=== PATIENT | female | born 1940 | race Hispanic/Latino ===

== ENCOUNTER 2018-12-02 14:30 | Emergency (ER) | payer SELFPAY ==
[2018-12-02] MEDS ORDERED: ONDANSETRON 4 MG/2 ML VIAL ONE (15:30)
[2018-12-02] MEDS ORDERED: NA CHLORIDE 0.9% 500 ML ONE (15:30)
[2018-12-02 15:32] LABS: Absolute Lymphocytes (CBC) 2.5 K/uL (0.7-4.9); Hematocrit 42.4 % (36.0-45.0); Lymphocytes % 29.4 % (15.3-44.8); RBC Red Blood Cell Count 4.82 M/uL (3.86-4.86)
[2018-12-02 15:46] LABS: Albumin 3.9 g/dL (3.4-5.0); Bilirubin Direct 0.2 mg/dL (0-0.2); Bilirubin Total 0.3 mg/dL (0.2-1.0); Potassium 3.5 mmol/L (3.5-5.1); Protein, Total 7.7 g/dL (6.4-8.2)
[2018-12-02] MEDS ORDERED: MEPERIDINE HCL 25 MG/0.5 ML ONE (15:51)
[2018-12-02 16:22] LABS: Urine RBC NONE SEEN /HPF (NONE SEEN)
[2018-12-02 16:23] LABS: Urine Bacteria 20-50 /HPF (<20); Urine Culture Reflex Order REFLEXED
[2018-12-02 16:27] LABS: Urine Blood TRACE (NEG); Urine Glucose NEGATIVE (NEG); Urine Protein NEGATIVE (NEG)
--- NOTE | 2018-12-02 17:20 | RAD REPORT ---
EXAM DESCRIPTION: CT - Head Brain Wo Cont - 12/02/2018 5:13 pm CLINICAL HISTORY: Headache COMPARISON: CT head April 2016 TECHNIQUE: Axial 5 mm thick images of the head were obtained without IV contrast. All CT scans are performed using dose optimization technique as appropriate and may include automated exposure control or mA/KV adjustment according to patient size. FINDINGS: No intracranial hemorrhage, mass, edema or shift of mid-line structures. No acute infarcti on changes seen. No abnormal extra-axial fluid collections. Mild atrophy changes similar to compariso n. Ventricles are in proportion. Mastoid air cells and visualized portions of the paranasal sinuses are clear. No acute bony findings. IMPRESSION: Negative non-contrast CT head examination for acute finding. No significant change from comparison.
--- NOTE | 2018-12-02 17:30 | RAD REPORT ---
EXAM DESCRIPTION: CT - Abdomen Pelvis W Contrast - 12/02/2018 5:18 pm CLINICAL HISTORY: ABD PAINleft upper quadrant pain COMPARISON: CT April 2016 TECHNIQUE: Biphasic, helical CT imaging of the abdomen and pelvis was performed following 100 ml non -ionic IV contrast. Oral contrast was given. All CT scans are performed using dose optimization technique as appropriate and may include automated exposure control or mA/KV adjustment according to patient size. FINDINGS: No suspicious findings in the lung bases. The liver, spleen, and pancreas show no suspicious findings. Gallbladder is absent. No biliary tree d ilatation. Symmetric renal function is seen with no hydronephrosis or suspicious renal mass. No pyelonephritis o r acute parenchymal process. No bladder abnormalities. No adrenal abnormalities. No dilated bowel loops or bowel wall thickening. Diverticulosis present without diverticulitis. No fr ee air, free fluid or inflammatory stranding. No hernia, mass or bulky lymphadenopathy. Uterus is ab sent. Ovaries are absent or atrophic. Disc and bony degenerative changes are present. No acute finding. IMPRESSION: Contrast enhanced CT abdomen and pelvis showing no acute finding. No abnormality to exp marisol left upper quadrant pain pattern.
--- NOTE | 2018-12-02 17:36 | ER ---
Nurse's Notes [facility] Name: Kristy Serrano Age: 78 yrs Sex: Female : 1940 Arrival Date: 12/02/2018 Time: 14:36 Bed 2 Private MD: Diagnosis: Upper abdominal pain, unspecified;Urinary tract infection, site not specified Presentation: 12/02 14:43 Presenting complaint: Patient states: frontal headache and LUQ pain that began 10 days aa5 ago. Pt states "I am taking medicine for the pain but it's not helping and my blood pressure goes up and down". Transition of care: patient was not received from another setting of care. Onset of symptoms was November 2018. Risk Assessment: Do you want to hurt yourself or someone else? Patient reports no desire to harm self or others. Initial Sepsis Screen: Does the patient meet any 2 criteria? No. Patient's initial sepsis screen is negative. Does the patient have a suspected source of infection? No. Patient's initial sepsis screen is negative. Care prior to arrival: None. 14:43 Acuity: MAYKEL 3 aa5 14:43 Method Of Arrival: Wheelchair aa5 Triage Assessment: 14:45 General: Appears in no apparent distress. comfortable, obese, Behavior is cooperative, bp appropriate for age, anxious. Pain: Complains of pain in head and left upper quadrant. EENT: No deficits noted. Neuro: No deficits noted. Cardiovascular: No deficits noted. Respiratory: No deficits noted. GI: Reports upper abdominal pain. : No deficits noted. Derm: No deficits noted. Musculoskeletal: No deficits noted. Historical: - Allergies: 14:44 No Known Allergies; aa5 - PMHx: 14:44 Diabetes - NIDDM; Hypertension; Hyperlipidemia; Thyroid problem; aa5 - PSHx: 14:44 Cholecystectomy; Hysterectomy; Hernia repair; aa5 - Immunization history:: Adult Immunizations unknown. - Social history:: Smoking status: Patient/guardian denies using tobacco. - Ebola Screening: : No symptoms or risks identified at this time. - Family history:: not pertinent. - Hospitalizations: : No recent hospitalization is reported. Screenin:54 Abuse screen: Denies threats or abuse. Denies injuries from another. Nutritional bp screening: No deficits noted. Tuberculosis screening: No symptoms or risk factors identified. Fall Risk None identified. Assessment: 14:45 General: SEE TRIAGE NOTE. bp 14:45 GI: Bowel sounds present X 4 quads. Abd is soft X 4 quads. bp 17:00 Reassessment: ALL CURRENT ORDERS COMPLETED, DISPO PENDING. bp 17:40 Reassessment: PT D/C HOME AMBULATORY WITH FAMILY, DX WITH UTI. bp Vital Signs: 14:44 BP 146 / 67; Pulse 87; Resp 16 S; Temp 98.1(TE); Pulse Ox 97% on R/A; Pain 10/10; aa5 15:52 BP 144 / 68; Pulse 69; Resp 16; Pulse Ox 97% ; bp 16:45 BP 117 / 58; Pulse 66; Resp 17; Temp 97.8(O); Pulse Ox 97% on R/A; mh5 17:39 BP 142 / 74; Pulse 73; Resp 17; Temp 98; Pulse Ox 98% ; bp ED Course: 14:36 Patient arrived in ED. aa5 14:43 Triage completed. aa5 14:44 Arm band placed on. aa5 14:46 Nitin Hoover, RN is Primary Nurse. bp 14:48 Joao Julian MD is Attending Physician. rn 14:54 Patient has correct armband on for positive identification. Bed in low position. Call bp light in reach. Side rails up X2. Adult w/ patient. 15:23 Warm blanket given. Pulse ox on. NIBP on. mh5 15:24 Initial lab(s) drawn, by tx, sent to lab. Inserted saline lock: 22 gauge in right 5 antecubital area, using aseptic technique. Blood collected. 15:25 Basic Metabolic Panel Sent. mh5 15:25 CBC with Diff Sent. mh5 15:25 Creatinine for Radiology Sent. mh5 15:25 Hepatic Function Sent. mh5 15:25 Lipase Sent. mh5 17:14 CT Head Brain wo Cont In Process Unspecified. EDMS 17:18 CT completed. Patient tolerated procedure well. Patient moved back from CT. mw3 17:19 CT Abd/Pelvis - PO and IV Contrast In Process Unspecified. EDMS 17:43 No provider procedures requiring assistance completed. IV discontinued, intact, bp bleeding controlled, No redness/swelling at site. Pressure dressing applied. Administered Medications: 15:25 Drug: NS 0.9% 500 ml Route: IV; Rate: bolus; Site: right antecubital; bp 17:42 Follow up: IV Status: Completed infusion; IV Intake: 500ml bp 15:25 Drug: Zofran 4 mg Route: IVP; Site: right antecubital; bp 17:41 Follow up: Response: Nausea is decreased bp 15:52 Drug: Demerol 25 mg Route: IVP; Site: right antecubital; bp 17:41 Follow up: Response: Pain is decreased bp 17:43 Drug: Macrobid 100 mg Route: PO; bp 17:43 Follow up: Response: Medication administered at discharge. bp Intake: 17:42 IV: 500ml; Total: 500ml. bp Outcome: 17:35 Discharge ordered by MD. rn 17:40 Discharged to home ambulatory, with family. bp 17:40 Condition: stable 17:40 Discharge instructions given to patient, family, Instructed on discharge instructions, follow up and referral plans. medication usage, Demonstrated understanding of instructions, follow-up care, medications, Prescriptions given X 1. 17:54 Patient left the ED. bp Signatures: Dispatcher [employer] EDMS Joao Julian MD MD rn Calderon, Audri RN RN aa5 Ally Holley5 Nitin Hoover RN RN Marisol Miranda mw3
--- NOTE | 2018-12-02 17:37 | EDPHYS ---
[facility] Name: Kristy Serrano Age: 78 yrs Sex: Female : 1940 Arrival Date: 12/02/2018 Time: 14:36 Bed 2 Private MD: ED Physician Joao Julian HPI: 12/02 15:45 This 78 yrs old Female presents to ER via Wheelchair with complaints of rn Abdominal Pain, Headache. 15:45 The patient presents with abdominal pain in the left upper quadrant. Onset: The rn symptoms/episode began/occurred 10 day(s) ago. The symptoms do not radiate. Associated signs and symptoms: Pertinent positives: nausea and vomiting, constipation, headache, Pertinent negatives: blood in stools, fever, shortness of breath. Modifying factors: The symptoms are alleviated by nothing, the symptoms are aggravated by touching the area. Severity of pain: At its worst the pain was moderate in the emergency department the pain is unchanged. The patient has experienced similar episodes in the past. The patient has not recently seen a physician. 15:49 Reports 10 days of LUQ abd pain, nausea/vomiting, also has left sided headache that she rn attributes to abd pain.. Historical: - Allergies: 14:44 No Known Allergies; aa5 - PMHx: 14:44 Diabetes - NIDDM; Hypertension; Hyperlipidemia; Thyroid problem; aa5 - PSHx: 14:44 Cholecystectomy; Hysterectomy; Hernia repair; aa5 - Immunization history:: Adult Immunizations unknown. - Social history:: Smoking status: Patient/guardian denies using tobacco. - Ebola Screening: : No symptoms or risks identified at this time. - Family history:: not pertinent. - Hospitalizations: : No recent hospitalization is reported. ROS: 15:49 Constitutional: Negative for fever, chills, and weight loss, Eyes: Negative for injury, rn pain, redness, and discharge, Neck: Negative for injury, pain, and swelling, Cardiovascular: Negative for chest pain, palpitations, and edema, Respiratory: Negative for shortness of breath, cough, wheezing, and pleuritic chest pain, Abdomen/GI: Negative for diarrhea MS/Extremity: Negative for injury and deformity, Skin: Negative for injury, rash, and discoloration, Neuro: Negative for weakness, numbness, tingling, and seizure. Exam: 15:49 Constitutional: This is a well developed, well nourished patient who is awake, alert, rn and in no acute distress. Head/Face: Normocephalic, atraumatic. Eyes: Pupils equal round and reactive to light, extra-ocular motions intact. Lids and lashes normal. Conjunctiva and sclera are non-icteric and not injected. Cornea within normal limits. Periorbital areas with no swelling, redness, or edema. ENT: MMM Cardiovascular: Regular rate and rhythm. No pulse deficits. Respiratory: Lungs have equal breath sounds bilaterally, clear to auscultation. No increased work of breathing, no retractions or nasal flaring. Abdomen/GI: soft, mild left sided upper abd tenderness and terence-umbilical tenderness, no rebound MS/ Extremity: Pulses equal, no cyanosis. Neurovascular intact. Full, normal range of motion. Equal circumference. Neuro: Awake and alert, GCS 15, oriented to person, place, time, and situation. Cranial nerves II-XII grossly intact. Motor strength 5/5 in all extremities. Sensory grossly intact Vital Signs: 14:44 BP 146 / 67; Pulse 87; Resp 16 S; Temp 98.1(TE); Pulse Ox 97% on R/A; Pain 10/10; aa5 15:52 BP 144 / 68; Pulse 69; Resp 16; Pulse Ox 97% ; bp 16:45 BP 117 / 58; Pulse 66; Resp 17; Temp 97.8(O); Pulse Ox 97% on R/A; mh5 17:39 BP 142 / 74; Pulse 73; Resp 17; Temp 98; Pulse Ox 98% ; bp MDM: 14:48 Patient medically screened. rn 17:34 Differential diagnosis: diverticulitis, gastritis, gastroesophageal reflux disease, rn non-specific abd pain, pancreatitis, Peptic Ulcer Disease, Pyelonephritis, Ureterolithiasis, urinary tract infection. Data reviewed: vital signs, nurses notes, lab test result(s), radiologic studies, CT scan, and as a result, I will discharge patient. Counseling: I had a detailed discussion with the patient and/or guardian regarding: the historical points, exam findings, and any diagnostic results supporting the discharge/admit diagnosis, lab results, radiology results, the need for outpatient follow up, to return to the emergency department if symptoms worsen or persist or if there are any questions or concerns that arise at home. Response to treatment: the patient's symptoms have markedly improved after treatment, and as a result, I will discharge patient. Special discussion: Based on the patient's Hx, exam, and Dx evaluation, there is no indication for emergent surgery or inpatient Tx. It is understood by the patient/guardian that if the Sx's persist or worsen they need to return immediately for re-evaluation. I discussed with the patient/guardian in detail that at this point there is no indication for admission to the hospital. It is understood, however, that if the symptoms persist or worsen the patient needs to return immediately for re-evaluation. 12/02 15:01 Order name: Basic Metabolic Panel; Complete Time: 17:07 rn 12/02 15:01 Order name: CBC with Diff; Complete Time: 17: rn 12/02 15:01 Order name: Creatinine for Radiology; Complete Time: 17: rn 12/02 15:01 Order name: Hepatic Function; Complete Time: 17: rn 12/02 15:01 Order name: Lipase; Complete Time: 17: rn 12/02 15:01 Order name: Urine Microscopic Only; Complete Time: 17: rn 12/02 15:01 Order name: CT Abd/Pelvis - PO and IV Contrast; Complete Time: 17:32 rn 12/02 15:01 Order name: CT Head Brain wo Cont; Complete Time: 17:32 rn 12/02 16:01 Order name: Urine Dipstick--Ancillary (enter results); Complete Time: 17:07 bd 12/02 16:24 Order name: Urine Culture EDIA 12/02 15:01 Order name: IV Saline Lock; Complete Time: 15:25 rn 12/02 15:01 Order name: Labs collected and sent; Complete Time: 15:26 rn 12/02 15:01 Order name: Urine Dipstick-Ancillary (obtain specimen); Complete Time: 15:55 rn Administered Medications: 15:25 Drug: NS 0.9% 500 ml Route: IV; Rate: bolus; Site: right antecubital; bp 17:42 Follow up: IV Status: Completed infusion; IV Intake: 500ml bp 15:25 Drug: Zofran 4 mg Route: IVP; Site: right antecubital; bp 17:41 Follow up: Response: Nausea is decreased bp 15:52 Drug: Demerol 25 mg Route: IVP; Site: right antecubital; bp 17:41 Follow up: Response: Pain is decreased bp 17:43 Drug: Macrobid 100 mg Route: PO; bp 17:43 Follow up: Response: Medication administered at discharge. bp Disposition: 12/02/18 17:35 Discharged to Home. Impression: Upper abdominal pain, unspecified, Urinary tract infection, site not specified. - Condition is Stable. - Discharge Instructions: Abdominal Pain, Adult, Urinary Tract Infection, Adult. - Prescriptions for Macrobid 100 mg Oral Capsule - take 1 capsule by ORAL route every 12 hours for 7 days; 14 capsule. - Medication Reconciliation Form, Thank You Letter, Antibiotic Education, Prescription Opioid Use form. - Follow up: Private Physician; When: As needed; Reason: Recheck today's complaints, Re-evaluation by your physician. - Problem is new. - Symptoms have improved. Signatures: Dispatcher [employer] EDMS Joao Julian MD MD rn Calderon, Audri RN RN aa5 Nitin Hoover RN RN bp Corrections: (The following items were deleted from the chart) 17:54 17:35 12/02/2018 17:35 Discharged to Home. Impression: Upper abdominal pain, bp unspecified; Urinary tract infection, site not specified. Condition is Stable. Forms are Medication Reconciliation Form, Thank You Letter, Antibiotic Education, Prescription Opioid Use. Follow up: Private Physician; When: As needed; Reason: Recheck today's complaints, Re-evaluation by your physician. Problem is new. Symptoms have improved. rn
[2018-12-02] MEDS ORDERED: NITROFURAN MACRO 100 MG CAP PO ONE (17:46)
== END 2018-12-02 17:54 | disposition home or self-care (01) ==
LOC: ER 14:30
DX: N39.0 Urinary tract infection, site not specified (principal); I10 Essential (primary) hypertension
CPT/HCPCS: 36415; 70450; 74177; 80048; 80076; 81003; 81015; 83690; 85025; 87086; 87088; 96361; 96374; 96375; 99284; J2175; J2405; Q9967

== ENCOUNTER 2019-09-01 11:22 | Emergency (ER) | payer SELFPAY ==
[2019-09-01 13:13] LABS: Absolute Lymphocytes (CBC) 1.6 K/uL (0.7-4.9); Basophils % 0.5 % (0-1.3); Hematocrit 41.1 % (36.0-45.0); Lymphocytes % 25.7 % (15.3-44.8); MPV 7.7 fL (7.6-11.3); RBC Red Blood Cell Count 4.71 M/uL (3.86-4.86)
[2019-09-01 13:19] LABS: Urine Blood TRACE (NEG); Urine Glucose NEGATIVE (NEG); Urine Protein NEGATIVE (NEG)
[2019-09-01] MEDS ORDERED: ONDANSETRON 4 MG/2 ML VIAL ONE (13:22)
[2019-09-01] MEDS ORDERED: MORPHINE 4 MG/ML SYR ONE (13:22)
--- NOTE | 2019-09-01 13:27 | RAD REPORT ---
EXAM DESCRIPTION: RAD - Chest Single View - 09/01/2019 1:01 pm CLINICAL HISTORY: Dizziness COMPARISON: Portable November 2013 TECHNIQUE: AP portable chest image was obtained 09/01/2019 1:01 pm . FINDINGS: No focal mass or consolidation portable technique and prominent overlying soft tissues cre ate hazy density over the lower lung leon. A true lung base acute process is not suspected. Heart a nd vasculature are normal. No measurable pleural effusion and no pneumothorax. No acute bony abnormal ity seen. No acute aortic findings suspected. IMPRESSION: No acute cardiopulmonary process. No significant change from comparison.
[2019-09-01 13:32] LABS: ALT/SGPT 26 U/L (12-78); AST/SGOT 18 U/L (15-37); Albumin 3.8 g/dL (3.4-5.0); Alkaline Phosphatase 94 U/L (45-117); BUN Blood Urea Nitrogen 10 mg/dL (7-18); Bicarbonate 28 mmol/L (21-32); Bilirubin Direct 0.1 mg/dL (0-0.2); Bilirubin Total 0.3 mg/dL (0.2-1.0); Glucose Level 121 mg/dL (74-106); Lipase 199 U/L (73-393); Magnesium 1.9 mg/dL (1.8-2.4); NT PRO-BNP 172 pg/mL (<450); Potassium 3.5 mmol/L (3.5-5.1); Protein, Total 7.8 g/dL (6.4-8.2); Sodium Level 136 mmol/L (136-145); Troponin (Emerg Dept Use Only) < 0.02 ng/mL (0.0-0.045)
[2019-09-01 13:51] LABS: Urine Bacteria 20-50 /HPF (<20); Urine Culture Reflex Order REFLEXED; Urine RBC <5 /HPF (NONE SEEN)
[2019-09-01] MEDS ORDERED: NA CHLORIDE 0.9% 500 ML ONE (13:54)
--- NOTE | 2019-09-01 15:12 | RAD REPORT ---
EXAM DESCRIPTION: CT - Head Brain Wo Cont - 09/01/2019 2:34 pm CLINICAL HISTORY: DIZZINESS, headache COMPARISON: Head Brain Wo Cont dated 12/02/2018 TECHNIQUE: Axial 5 mm thick images of the head were obtained without IV contrast. All CT scans are performed using dose optimization technique as appropriate and may include automated exposure control or mA/KV adjustment according to patient size. FINDINGS: No intracranial hemorrhage, mass, edema or shift of mid-line structures. No acute infarcti on changes seen. No abnormal extra-axial fluid collections. Ventricles are normal. Mild atrophy and m inimal chronic ischemic change similar to comparison. Mastoid air cells and visualized portions of the paranasal sinuses are clear. No acute bony findings. IMPRESSION: Negative noncontrast CT study for acute finding. No significant change from comparison.
--- NOTE | 2019-09-01 15:16 | RAD REPORT ---
EXAM DESCRIPTION: CT - Abdomen Pelvis W Contrast - 09/01/2019 2:41 pm CLINICAL HISTORY: ABD PAIN COMPARISON: Abdomen Pelvis W Contrast dated 12/02/2018; Abdomen Pelvis W Contrast dated 05/23/2016 TECHNIQUE: Biphasic, helical CT imaging of the abdomen and pelvis was performed following 100 ml non -ionic IV contrast. No oral contrast. All CT scans are performed using dose optimization technique as appropriate and may include automated exposure control or mA/KV adjustment according to patient size. FINDINGS: No suspicious findings in the lung bases. The liver, spleen, and pancreas show no suspicious findings. Gallbladder and biliary tree are also wi thout suspicious finding. Symmetric renal function is seen with no hydronephrosis or suspicious renal mass. No pyelonephritis o r acute parenchymal process. No bladder abnormalities. No adrenal abnormalities. No urinary bladder a bnormality. No gastric dilatation or wall thickening. No acute small bowel finding. No appendicitis findings are seen. There is prominent diverticulosis in the tortuous and redundant sigmoid colon. No diverticuliti s or acute colon process seen. No free air, free fluid or inflammatory stranding. No mass or bulky lymphadenopathy. Patient has a 5 centimeter fat only supraumbilical ventral hernia. Neck is 5 cm. Degenerative and scoliotic changes are present in the spine. No acute finding. Degenerative changes a re most pronounced at L2-3. IMPRESSION: Contrast enhanced CT abdomen and pelvis showing no acute or emergent finding. Nonacute findings detailed in the body of the report.
--- NOTE | 2019-09-01 15:25 | ER ---
Nurse's Notes [facility] Name: Kristy Serrano Age: 79 yrs Sex: Female : 1940 Arrival Date: 09/01/2019 Time: 11:42 Bed 16 Private MD: Diagnosis: Urinary tract infection, site not specified;Upper abdominal pain, unspecified Presentation: 08/31 11:45 Chief complaint: Patient states: LUQ pain, dizziness, headache and nausea that began 1 ss week ago. Pt has been seen in ER for similar symptoms and was told she had a UTI. Coronavirus screen: Proceed with normal triage. Patient denies a cough. Patient denies shortness of breath or difficulty breathing. Patient denies measured and/or subjective temperature greater than 100.4F prior to today's visit. Patient denies travel on a cruise ship or to a country the [facility] currently lists as an affected area. Patient denies contact with known and/or suspected case of COVID-19. Ebola Screen: Patient denies exposure to infectious person. Patient denies travel to an Ebola-affected area in the 21 days before illness onset. Initial Sepsis Screen: Does the patient meet any 2 criteria? No. Patient's initial sepsis screen is negative. Does the patient have a suspected source of infection? No. Patient's initial sepsis screen is negative. Risk Assessment: Do you want to hurt yourself or someone else? Patient reports no desire to harm self or others. Onset of symptoms is unknown. 11:45 Method Of Arrival: Wheelchair ss 11:45 Acuity: MAYKEL 3 ss Historical: - Allergies: 11:47 No Known Allergies; ss - PMHx: 11:47 Diabetes - NIDDM; Hyperlipidemia; Hypertension; Thyroid problem; ss - PSHx: 11:47 Cholecystectomy; Hysterectomy; Hernia repair; ss - Immunization history:: Adult Immunizations up to date. - Social history:: Smoking status: Patient denies any tobacco usage or history of. Screenin:00 Abuse screen: Denies threats or abuse. Nutritional screening: No deficits noted. vc Tuberculosis screening: No symptoms or risk factors identified. Fall Risk No fall in past 12 months (0 pts). No secondary diagnosis (0 pts). IV access (20 points). Ambulatory Aid- None/Bed Rest/Nurse Assist (0 pts). Gait- Weak (10 pts.). Mental Status- Oriented to own ability (0 pts). Total Eddy Fall Scale indicates Low Risk Score (25-44 pts). Fall prevention measures have been instituted. Side Rails Up X 2 Placed close to Nursing Station. Assessment: 12:15 General: Appears uncomfortable, Behavior is calm, cooperative, appropriate for age. ll1 Pain: Complains of pain in head and upper abdomen Pain currently is 8 out of 10 on a pain scale. Quality of pain is described as aching, Pain began 2-3 days ago. Is intermittent. Neuro: Level of Consciousness is awake, alert, obeys commands, Oriented to person, place, time, situation, Cuff Slitter are equal bilaterally Moves all extremities. Full function Gait is steady, Speech is normal, Facial symmetry appears normal, Reports headache in entire. Cardiovascular: No deficits noted. Respiratory: No deficits noted. GI: Abdomen is flat, Bowel sounds present X 4 quads. Abd is soft and non tender X 4 quads. Reports upper abdominal pain, nausea. : No deficits noted. 13:15 Reassessment: Patient appears in no apparent distress at this time. No changes from ll1 previously documented assessment. Patient and/or family updated on plan of care and expected duration. Pain level reassessed. Patient is alert, oriented x 3, equal unlabored respirations, skin warm/dry/pink. 15:15 Reassessment: Patient appears in no apparent distress at this time. Patient and/or vc family updated on plan of care and expected duration. Pain level reassessed. Patient is alert, oriented x 3, equal unlabored respirations, skin warm/dry/pink. Reassessment: Patient appears in no apparent distress at this time. Patient and/or family updated on plan of care and expected duration. Pain level reassessed. Patient is alert, oriented x 3, equal unlabored respirations, skin warm/dry/pink. 16:14 Reassessment: Patient appears in no apparent distress at this time. Patient and/or vc family updated on plan of care and expected duration. Pain level reassessed. Patient is alert, oriented x 3, equal unlabored respirations, skin warm/dry/pink. Vital Signs: 11:45 BP 138 / 79; Pulse 93; Resp 16; Temp 97.0(TE); Pulse Ox 99% on R/A; ss 12:40 BP 151 / 69; Pulse 86; Resp 18; Pulse Ox 100% ; ll1 13:00 BP 136 / 65; Pulse 81; Resp 18; Pulse Ox 100% ; ll1 13:30 BP 114 / 95; Pulse 87; Resp 17; Pulse Ox 100% ; Pain 1/10; ll1 13:45 BP 130 / 65; Pulse 80; Resp 18; Pulse Ox 98% ; Pain 1/10; ll1 16:00 BP 135 / 71; Pulse 83; Resp 18; Pulse Ox 100% ; vc ED Course: 11:42 Patient arrived in ED. ss 11:47 Triage completed. ss 11:47 Arm band placed on right wrist. ss 12:00 Nahun Narayan NP is PHCP. pm1 12:00 Joao Julian MD is Attending Physician. pm1 12:10 Inserted saline lock: 20 gauge in right antecubital area, using aseptic technique. ll1 Blood collected. 12:13 Ritika Chacon RN is Primary Nurse. ll1 13:01 XRAY Chest (1 view) In Process Unspecified. EDMS 13:28 EKG done, by ED staff, reviewed by Nahun Narayan NP. dh3 14:34 CT Head Brain wo Cont In Process Unspecified. EDMS 14:41 CT Abd/Pelvis - IV Contrast Only In Process Unspecified. EDMS Administered Medications: 13:32 Drug: Zofran (Ondansetron) 4 mg Route: IVP; Site: right antecubital; ll1 13:52 Follow up: Response: No adverse reaction; Pain is decreased; Nausea is decreased; RASS: ll1 Alert and Calm (0) 13:32 Drug: morphine 4 mg Route: IVP; Site: right antecubital; ll1 13:52 Follow up: Response: No adverse reaction; Pain is decreased; RASS: Alert and Calm (0) ll1 13:49 Drug: NS 0.9% 500 ml Volume: 500 ml; Route: IV; Rate: 1 bolus; Site: right antecubital; ll1 14:15 Drug: Rocephin 1 grams Route: IV; Rate: calculated rate; Site: right antecubital; vc Outcome: 15:24 Discharge ordered by . pm1 16:21 Patient left the ED. vc Signatures: Dispatcher [employer] EDMS Martha Mejia RN RN ss Nahun Narayan MINE ADMINISTRATOR SUPERVISOR MINE ADMINISTRATOR SUPERVISOR pm1 Linda White dh3 Yamilex Peralta, RN RN Ritika Valenzuela, RN RN ll1
--- NOTE | 2019-09-01 15:25 | EDPHYS ---
Physician Documentation [facility] Name: Kristy Serrano Age: 79 yrs Sex: Female : 1940 Arrival Date: 09/01/2019 Time: 11:42 Bed 16 Private MD: ED Physician Joao Julian HPI: 08/31 12:59 This 79 yrs old Female presents to ER via Wheelchair with complaints of pm1 Dizziness, abdominal pain. 12:59 The patient presents with dizziness. Onset: The symptoms/episode began/occurred 1 pm1 week(s) ago. Modifying factors: The symptoms are alleviated by nothing, the symptoms are aggravated by nothing. Associated signs and symptoms: Pertinent positives: abdominal pain, Pertinent negatives: chest pain, headache, nausea, numbness, shortness of breath, tingling, vomiting. The patient has experienced a previous episode, and the symptoms today are exactly the same, last year. Diagnosed with UTI. Historical: - Allergies: 11:47 No Known Allergies; ss - PMHx: 11:47 Diabetes - NIDDM; Hyperlipidemia; Hypertension; Thyroid problem; ss - PSHx: 11:47 Cholecystectomy; Hysterectomy; Hernia repair; ss - Immunization history:: Adult Immunizations up to date. - Social history:: Smoking status: Patient denies any tobacco usage or history of. ROS: 12:59 Constitutional: Negative for fever, chills, and weight loss, Neck: Negative for injury, pm1 pain, and swelling, Cardiovascular: Negative for chest pain, palpitations, and edema, Respiratory: Negative for shortness of breath, cough, wheezing, and pleuritic chest pain. 12:59 Back: Negative for injury and pain, : Negative for injury, bleeding, discharge, and swelling, MS/Extremity: Negative for injury and deformity, Skin: Negative for injury, rash, and discoloration. 12:59 Abdomen/GI: Positive for abdominal pain, of the left upper quadrant, Negative for nausea, vomiting, and diarrhea, constipation. 12:59 Neuro: Positive for dizziness, Negative for headache, numbness, tingling. Exam: 12:59 Constitutional: This is a well developed, well nourished patient who is awake, alert, pm1 and in no acute distress. Head/Face: Normocephalic, atraumatic. Chest/axilla: Normal chest wall appearance and motion. Nontender with no deformity. No lesions are appreciated. 12:59 Back: No spinal tenderness. No costovertebral tenderness. Full range of motion. Skin: Warm, dry with normal turgor. Normal color with no rashes, no lesions, and no evidence of cellulitis. MS/ Extremity: Pulses equal, no cyanosis. Neurovascular intact. Full, normal range of motion. 12:59 Cardiovascular: Exam negative for acute changes, Rate: normal, Rhythm: regular, Pulses: no pulse deficits are appreciated. 12:59 Respiratory: Exam negative for acute changes, respiratory distress, shortness of breath. 12:59 Abdomen/GI: Inspection: abdomen appears normal, Palpation: soft, in all quadrants, mild abdominal tenderness, in the left upper quadrant, mass, is not appreciated, rebound tenderness, is not appreciated. 12:59 Neuro: Exam negative for acute changes, Orientation: is normal, Mentation: is normal, Cranial nerves: CN II- XII are normal as tested, Cerebellar function: normal finger to nose testing, Motor: is normal, moves all fours. Vital Signs: 11:45 BP 138 / 79; Pulse 93; Resp 16; Temp 97.0(TE); Pulse Ox 99% on R/A; ss 12:40 BP 151 / 69; Pulse 86; Resp 18; Pulse Ox 100% ; ll1 13:00 BP 136 / 65; Pulse 81; Resp 18; Pulse Ox 100% ; ll1 13:30 BP 114 / 95; Pulse 87; Resp 17; Pulse Ox 100% ; Pain 1/10; ll1 13:45 BP 130 / 65; Pulse 80; Resp 18; Pulse Ox 98% ; Pain 1/10; ll1 16:00 BP 135 / 71; Pulse 83; Resp 18; Pulse Ox 100% ; vc MDM: 12:20 Patient medically screened. pm1 15:23 Data reviewed: vital signs. Data interpreted: Pulse oximetry: on room air is 98 %. pm1 Interpretation: normal. Counseling: I had a detailed discussion with the patient and/or guardian regarding: the historical points, exam findings, and any diagnostic results supporting the discharge/admit diagnosis, lab results, radiology results, the need for outpatient follow up, to return to the emergency department if symptoms worsen or persist or if there are any questions or concerns that arise at home. 08/31 12:43 Order name: Basic Metabolic Panel; Complete Time: 13:39 pm1 08/31 12:43 Order name: CBC with Diff; Complete Time: 13:39 pm1 08/31 12:43 Order name: LFT's; Complete Time: 13:39 pm1 08/31 12:43 Order name: Magnesium; Complete Time: 13:39 pm1 08/31 12:43 Order name: NT PRO-BNP; Complete Time: 13:39 pm1 08/31 12:43 Order name: PT-INR; Complete Time: 13:39 pm1 08/31 12:43 Order name: Troponin (emerg Dept Use Only); Complete Time: 13:39 pm1 08/31 12:43 Order name: XRAY Chest (1 view); Complete Time: 13:30 pm1 08/31 12:43 Order name: Urine Microscopic Only; Complete Time: 14:04 pm1 08/31 12:44 Order name: Lipase; Complete Time: 13:39 pm1 08/31 12:58 Order name: Urine Dipstick--Ancillary (enter results); Complete Time: 13:23 eb 08/31 13:39 Order name: CT Abd/Pelvis - IV Contrast Only; Complete Time: 15:16 pm1 08/31 13:39 Order name: CT Head Brain wo Cont; Complete Time: 15:16 pm1 08/31 13:53 Order name: Urine Culture EDOK 08/31 12:43 Order name: EKG; Complete Time: 12:44 pm1 08/31 12:43 Order name: Cardiac monitoring; Complete Time: 12:46 pm1 08/31 12:43 Order name: EKG - Nurse/Tech; Complete Time: 13:31 pm1 08/31 12:43 Order name: IV Saline Lock; Complete Time: 12:46 pm1 08/31 12:43 Order name: Labs collected and sent; Complete Time: 12:46 pm1 08/31 12:43 Order name: O2 Per Protocol; Complete Time: 12:47 pm1 08/31 12:43 Order name: O2 Sat Monitoring; Complete Time: 12:47 pm1 08/31 12:43 Order name: Urine Dipstick-Ancillary (obtain specimen); Complete Time: 12:46 pm1 Administered Medications: 13:32 Drug: Zofran (Ondansetron) 4 mg Route: IVP; Site: right antecubital; ll1 13:52 Follow up: Response: No adverse reaction; Pain is decreased; Nausea is decreased; RASS: ll1 Alert and Calm (0) 13:32 Drug: morphine 4 mg Route: IVP; Site: right antecubital; ll1 13:52 Follow up: Response: No adverse reaction; Pain is decreased; RASS: Alert and Calm (0) ll1 13:49 Drug: NS 0.9% 500 ml Volume: 500 ml; Route: IV; Rate: 1 bolus; Site: right antecubital; ll1 14:15 Drug: Rocephin 1 grams Route: IV; Rate: calculated rate; Site: right antecubital; vc Disposition: 16:35 Co-signature as Attending Physician, Joao Julian MD. rn Disposition: 09/01/19 15:24 Discharged to Home. Impression: Urinary tract infection, site not specified, Upper abdominal pain, unspecified. - Condition is Stable. - Discharge Instructions: Abdominal Pain, Adult, Urinary Tract Infection, Adult. - Prescriptions for Macrobid 100 mg Oral Capsule - take 1 capsule by ORAL route every 12 hours for 7 days; 14 capsule. - Medication Reconciliation Form, Thank You Letter, Antibiotic Education, Prescription Opioid Use form. - Follow up: Emergency Department; When: As needed; Reason: Worsening of condition. Follow up: Private Physician; When: 2 - 3 days; Reason: Recheck today's complaints, Continuance of care, Re-evaluation by your physician. - Problem is new. - Symptoms have improved. Signatures: Dispatcher [employer] EDMS Joao Julian MD MD rn Smirch, Shelby, RN RN ss Marinas, Patrick, DUSTY QUILL MACHINE TENDER pm1 Yamilex Peralta RN RN vc Lewis, Lynsay, RN RN ll1 Corrections: (The following items were deleted from the chart) 15:25 15:24 09/01/2019 15:24 Discharged to Home. Impression: Urinary tract infection, site pm1 not specified. Condition is Stable. Forms are Medication Reconciliation Form, Thank You Letter, Antibiotic Education, Prescription Opioid Use. Follow up: Emergency Department; When: As needed; Reason: Worsening of condition. Follow up: Private Physician; When: 2 - 3 days; Reason: Recheck today's complaints, Continuance of care, Re-evaluation by your physician. Problem is new. Symptoms have improved. pm1 16:21 15:25 09/01/2019 15:24 Discharged to Home. Impression: Urinary tract infection, site vc not specified; Upper abdominal pain, unspecified. Condition is Stable. Discharge Instructions: Urinary Tract Infection, Adult, Abdominal Pain, Adult. Forms are Medication Reconciliation Form, Thank You Letter, Antibiotic Education, Prescription Opioid Use. Follow up: Emergency Department; When: As needed; Reason: Worsening of condition. Follow up: Private Physician; When: 2 - 3 days; Reason: Recheck today's complaints, Continuance of care, Re-evaluation by your physician. Problem is new. Symptoms have improved. pm1
[2019-09-01 16:29] VITALS: TEMP 97
[2019-09-01 16:36] VITALS: BP 135/71; O2SAT 100
--- NOTE | 2019-09-03 07:48 | EKG ---
Test Date: 2019-09-01 Test Time: 13:25:16 Vocational Aide: ANGEL MEASUREMENT RESULTS: Intervals: Rate: 79 WI: 178 QRSD: 98 QT: 392 QTc: 449 [place]: P: 41 WI: 178 QRS: -17 T: 28 INTERPRETIVE STATEMENTS: Normal sinus rhythm Normal ECG No previous ECG available for comparison Electronically Signed On 09-03-19 07:44:56 CDT by Randy Garcia
== END 2019-09-01 16:21 | disposition home or self-care (01) ==
LOC: ER 11:22
DX: N39.0 Urinary tract infection, site not specified (principal); R42 Dizziness and giddiness; I10 Essential (primary) hypertension
CPT/HCPCS: 36415; 70450; 71045; 74177; 80048; 80076; 81003; 81015; 83690; 83735; 83880; 84484; 85025; 85610; 87086; 87088; 93005; 96374; 96375; 99284; J2405; J7040; Q9967

== ENCOUNTER 2019-09-02 07:53 | Inpatient (IN) | payer SELFPAY ==
[2019-09-02] MEDS ORDERED: MECLIZINE HCL 12.5 MG TAB ONE (08:27)
[2019-09-02] MEDS ORDERED: NA CHLORIDE 0.9% 500 ML ONE (08:28)
[2019-09-02] MEDS ORDERED: ONDANSETRON 4 MG/2 ML VIAL ONE (08:28)
[2019-09-02 08:40] LABS: Absolute Lymphocytes (CBC) 1.6 K/uL (0.7-4.9); Basophils % 0.4 % (0-1.3); Hematocrit 41.6 % (36.0-45.0); Lymphocytes % 18.2 % (15.3-44.8); MPV 7.7 fL (7.6-11.3); RBC Red Blood Cell Count 4.78 M/uL (3.86-4.86)
[2019-09-02 08:51] LABS: Potassium 3.4 mmol/L (3.5-5.1)
--- NOTE | 2019-09-02 09:28 | RAD REPORT ---
EXAM DESCRIPTION: CT - Head angio - 09/02/2019 9:18 am CLINICAL HISTORY: Dizziness;Headache Headache, drowsiness COMPARISON: Head Brain Wo Cont dated 09/01/2019; Head Brain Wo Cont dated 12/02/2018; Neck Angio dated TECHNIQUE: CT angiography of the head was performed with MIPs. All CT scans are performed using dose optimization technique as appropriate and may include automated exposure control or mA/KV adjustment according to patient size. FINDINGS: No evidence of aneurysm is detected. No flow-limiting stenosis or vascular malformation id entified. Antegrade flow is seen in the vertebral arteries. The vertebral arteries are codominant. The visualized dural venous sinuses are patent. IMPRESSION: No significant flow abnormality is detected.
--- NOTE | 2019-09-02 09:31 | RAD REPORT ---
EXAM DESCRIPTION: CT - Neck Angio - 09/02/2019 9:17 am CLINICAL HISTORY: dizziness, neck pain Headache, drowsiness, neck pain COMPARISON: No comparisons TECHNIQUE: CT angiography of the neck vessels was performed with MIPs. All CT scans are performed using dose optimization technique as appropriate and may include automated exposure control or mA/KV adjustment according to patient size. FINDINGS: A left aortic arch is identified with normal three vessel configuration of the great vesse ls. No significant flow abnormality is seen of the common carotid bilaterally. No significant stenosis is identified involving the cervical segments of both internal carotid arteri es. Left-sided dominant vertebral artery seen. Tonsilliths are present bilaterally. Mild cervical spine spondylosis. IMPRESSION: No significant flow abnormality of the neck vessels is identified.
--- NOTE | 2019-09-02 09:39 | ER ---
Nurse's Notes [facility] Name: Kristy Serrano Age: 79 yrs Sex: Female : 1940 Arrival Date: 09/02/2019 Time: 08:03 Bed 6 Private MD: Diagnosis: Vertigo;Nausea;Weakness Presentation: 09/01 08:15 Chief complaint: Headache and dizziness x 3 days, worse today. Also c/o abdominal pain hb that is chronic. Coronavirus screen: Proceed with normal triage. Ebola Screen: No symptoms or risks identified at this time. Initial Sepsis Screen: Does the patient meet any 2 criteria? No. Patient's initial sepsis screen is negative. Does the patient have a suspected source of infection? No. Patient's initial sepsis screen is negative. Risk Assessment: Do you want to hurt yourself or someone else? Patient reports no desire to harm self or others. Onset of symptoms was September 02, 2019. 08:15 Method Of Arrival: Wheelchair hb 08:15 Acuity: MAYKEL 3 hb Historical: - Allergies: 08:17 No Known Allergies; hb - Home Meds: 08:17 gemfibrozil 600 mg Oral tab 1 tab 2 times per day [Active]; lisinopril 20 mg Oral tab 1 hb tab BID [Active]; metformin 1,000 mg Oral tab 1 tab 1 tab in QAM and 1/2 tab QPM [Active]; - PMHx: 08:17 Diabetes - NIDDM; Hyperlipidemia; Hypertension; Thyroid problem; hb - PSHx: 08:17 Cholecystectomy; Hysterectomy; Hernia repair; hb - Immunization history:: Adult Immunizations up to date. - Social history:: Smoking status: Patient denies any tobacco usage or history of. - Family history:: not pertinent. - Hospitalizations: : No recent hospitalization is reported. Screenin:20 Abuse screen: Denies threats or abuse. Nutritional screening: No deficits noted. em Tuberculosis screening: No symptoms or risk factors identified. Fall Risk None identified. Assessment: 08:20 General: Appears in no apparent distress. uncomfortable, Behavior is calm, cooperative, em appropriate for age, Denies fever. Pain: Complains of pain in abdomen and head Pain currently is 4 out of 10 on a pain scale. Neuro: Level of Consciousness is awake, alert, obeys commands, Oriented to person, place, time, situation, Appropriate for age Reports dizziness, headache. Cardiovascular: Capillary refill < 3 seconds Patient's skin is warm and dry. Chest pain is denied. Respiratory: Airway is patent Respiratory effort is even, unlabored, Respiratory pattern is regular, symmetrical. GI: Abdomen is round non-distended, Abd is soft X 4 quads Abdomen is tender to palpation in right upper quadrant and left upper quadrant Reports nausea, vomiting. Derm: Skin is intact, is fragile, is thin, Skin is pink, warm \T\ dry. Musculoskeletal: Capillary refill < 3 seconds, Range of motion: intact in all extremities. 09:25 Reassessment: Patient appears in no apparent distress at this time. pt states she has em had very little relief from Antivert, Dr. Julian notified, pt also states abd pain is making her nauseous. 09:47 Reassessment: Dr. Powell at bedside discussing POC. em 10:49 Reassessment: Patient appears in no apparent distress at this time. Patient and/or em family updated on plan of care and expected duration. Pain level reassessed. Patient is alert, oriented x 3, equal unlabored respirations, skin warm/dry/pink. Patient states feeling better. Patient states symptoms have improved. Vital Signs: 08:15 BP 162 / 85; Pulse 72; Resp 16; Temp 97.2; Pulse Ox 100% ; Pain 4/10; hb 09:30 BP 154 / 67; Pulse 92; Resp 22; Pulse Ox 97% on R/A; em 10:30 BP 131 / 64; Pulse 72; Resp 18; Pulse Ox 98% on R/A; em ED Course: 08:03 Patient arrived in ED. fj1 08:09 Joao Julian MD is Attending Physician. rn 08:11 Omkar Cho, LUCINA is Primary Nurse. em 08:17 Triage completed. hb 08:17 Arm band placed on. hb 08:20 Patient has correct armband on for positive identification. Call light in reach. Side em rails up X2. Pulse ox on. NIBP on. 08:30 Initial lab(s) drawn, by me, sent to lab. Inserted saline lock: 22 gauge in right em antecubital area, using aseptic technique. Blood collected. 08:49 EKG done, by ED staff, reviewed by Joao Julian MD. em 09:18 CT Neck Angio In Process Unspecified. EDMS 09:18 CT Head Angio In Process Unspecified. EDMS 09:18 CT completed. Patient tolerated procedure well. Patient moved back from CT. bq 09:38 Larry Powell DO is Hospitalizing Provider. rn 11:30 No provider procedures requiring assistance completed. Patient admitted, IV remains in em place. Administered Medications: 08:30 Drug: NS 0.9% 500 ml Route: IV; Rate: bolus; Site: right antecubital; em 10:50 Follow up: IV Status: Completed infusion; IV Intake: 500ml em 08:30 Drug: Zofran (Ondansetron) 4 mg Route: IVP; Site: right antecubital; em 09:40 Follow up: Response: No adverse reaction; No change in condition; Nausea unchanged em 08:53 Drug: Meclizine 50 mg Route: PO; em 09:40 Follow up: Response: No adverse reaction; No change in condition em 09:40 Drug: Phenergan 6.25 mg Route: IVP; Site: right antecubital; em 10:11 Follow up: Response: No adverse reaction em 10:20 Drug: Bentyl 20 mg Route: PO; em 11:30 Follow up: Response: No adverse reaction; Marked relief of symptoms em Intake: 10:50 IV: 500ml; Total: 500ml. em Outcome: 09:39 Decision to Hospitalize by Provider. rn 11:30 Condition: good em 11:30 Instructed on the need for admit, Demonstrated understanding of instructions. 11:30 Admitted to Med/surg accompanied by tech, via wheelchair, room 231, with chart, Report em called to LUCINA Ortega 11:33 Patient left the ED. em Signatures: Dispatcher [employer] EDKsenia Plascencia Edgar, RN RN em Joao Julian MD MD rn Baxter, Heather, RN RN hb James, Frank [facility] Corrections: (The following items were deleted from the chart) 11:32 11:30 Discharged to home via wheelchair, em em
--- NOTE | 2019-09-02 09:40 | EDPHYS ---
Physician Documentation [facility] Name: Kristy Serrano Age: 79 yrs Sex: Female : 1940 Arrival Date: 09/02/2019 Time: 08:03 Bed 6 Private MD: ED Physician Joao Julian HPI: 09/01 08:19 This 79 yrs old Female presents to ER via Wheelchair with complaints of rn Nausea, dizziness, Headache. 08:19 The patient presents with dizziness, sense of spinning. Onset: The symptoms/episode rn began/occurred at an unknown time. Modifying factors: The symptoms are alleviated by closing eyes, holding head still, lying down, the symptoms are aggravated by movement of head, standing up, changing position. Severity of symptoms: At their worst the symptoms were moderate in the emergency department the symptoms are unchanged. The patient has experienced similar episodes in the past. The patient has been recently seen at the [facility] Emergency Department, yesterday. Reports seen here yesterday, for dizziness and chronic abdominal pain. Reports abd pain for years, worse with food, no acute changes, had neg ct head and abdomen. Reports last night dizziness and nausea worse, feels like is going to fall, has also had this for some time but worse last night. No head injury or trauma. No focal weakness/numbness/vision changes. . Historical: - Allergies: 08:17 No Known Allergies; hb - Home Meds: 08:17 gemfibrozil 600 mg Oral tab 1 tab 2 times per day [Active]; lisinopril 20 mg Oral tab 1 hb tab BID [Active]; metformin 1,000 mg Oral tab 1 tab 1 tab in QAM and 1/2 tab QPM [Active]; - PMHx: 08:17 Diabetes - NIDDM; Hyperlipidemia; Hypertension; Thyroid problem; hb - PSHx: 08:17 Cholecystectomy; Hysterectomy; Hernia repair; hb - Immunization history:: Adult Immunizations up to date. - Social history:: Smoking status: Patient denies any tobacco usage or history of. - Family history:: not pertinent. - Hospitalizations: : No recent hospitalization is reported. ROS: 08:19 Constitutional: Negative for fever, chills, and weight loss, Eyes: Negative for injury, rn pain, redness, and discharge, Neck: Negative for injury, and swelling, Cardiovascular: Negative for chest pain, palpitations, and edema, Respiratory: Negative for shortness of breath, cough, wheezing, and pleuritic chest pain, Abdomen/GI: Negative for diarrhea, and constipation, MS/Extremity: Negative for injury and deformity, Skin: Negative for injury, rash, and discoloration, Neuro: Negative for weakness, numbness, tingling, and seizure. Exam: 08:19 Constitutional: This is a well developed, well nourished patient who is awake, alert, rn towel on her head Head/Face: Normocephalic, atraumatic. Eyes: Pupils equal round and reactive to light, extra-ocular motions intact. ENT: MMM Neck: Trachea midline, no masses palpated, and no cervical lymphadenopathy. Supple, full range of motion without nuchal rigidity, or vertebral point tenderness. No Meningismus. Cardiovascular: Regular rate and rhythm. No pulse deficits. Respiratory: No increased work of breathing, no retractions or nasal flaring. Abdomen/GI: soft, mild left sided abd tenderness, no rebound/guarding Skin: Warm, dry MS/ Extremity: Pulses equal, no cyanosis. Neurovascular intact. Full, normal range of motion. Equal circumference. Neuro: Awake and alert, GCS 15, oriented to person, place, time, and situation. Cranial nerves II-XII grossly intact. Motor strength 5/5 in all extremities. Sensory grossly intact. Vital Signs: 08:15 BP 162 / 85; Pulse 72; Resp 16; Temp 97.2; Pulse Ox 100% ; Pain 4/10; hb 09:30 BP 154 / 67; Pulse 92; Resp 22; Pulse Ox 97% on R/A; em 10:30 BP 131 / 64; Pulse 72; Resp 18; Pulse Ox 98% on R/A; em MDM: 08:09 Patient medically screened. rn 09:36 Differential diagnosis: hypovolemia, idiopathic dizziness, vertigo. Data reviewed: rn vital signs, nurses notes, lab test result(s), EKG, radiologic studies, CT scan, and as a result, I will admit patient. Counseling: I had a detailed discussion with the patient and/or guardian regarding: the historical points, exam findings, and any diagnostic results supporting the discharge/admit diagnosis, lab results, radiology results, the need for further work-up and treatment in the hospital. Response to treatment: There is no appreciated change of the patient's symptoms at this time, and as a result, I will admit patient. Admission orders: after a detailed discussion of the patient's condition and case, the admit orders are written by me. ED course: Pt still complaining of dizziness and nausea, unable to walk to bathroom on her own, neg CT head and abdomen yesterday, neg ct angio head/neck today, most consistent with vertigo given nausea/dizziness and length of symptoms, per patient "a long time". Will admit to Dr. Powell for symptomatic treatment as this is 2nd visit in 2 days and patient reports is worse. Urine culture from yesterday only shows mixed joel, likely just dirty catch and not true UTI.. 09/01 08:17 Order name: CBC with Diff; Complete Time: 08:57 rn 09/01 08:17 Order name: Basic Metabolic Panel; Complete Time: 08:57 rn 09/01 08:17 Order name: CT Head Angio; Complete Time: 09:32 rn 09/01 08:17 Order name: CT Neck Angio; Complete Time: 09:32 rn 09/01 09:06 Order name: CREATININE WHOLE BLOOD; Complete Time: 09:28 EDMS 09/01 08:17 Order name: IV Start; Complete Time: 08:40 rn 09/01 08:19 Order name: EKG; Complete Time: 08:20 rn 09/01 08:19 Order name: EKG - Nurse/Tech; Complete Time: 08:53 rn Administered Medications: 08:30 Drug: NS 0.9% 500 ml Route: IV; Rate: bolus; Site: right antecubital; em 10:50 Follow up: IV Status: Completed infusion; IV Intake: 500ml em 08:30 Drug: Zofran (Ondansetron) 4 mg Route: IVP; Site: right antecubital; em 09:40 Follow up: Response: No adverse reaction; No change in condition; Nausea unchanged em 08:53 Drug: Meclizine 50 mg Route: PO; em 09:40 Follow up: Response: No adverse reaction; No change in condition em 09:40 Drug: Phenergan 6.25 mg Route: IVP; Site: right antecubital; em 10:11 Follow up: Response: No adverse reaction em 10:20 Drug: Bentyl 20 mg Route: PO; em 11:30 Follow up: Response: No adverse reaction; Marked relief of symptoms em Disposition: 09/02/19 09:39 Hospitalization ordered by Larry Powell for Observation. Preliminary diagnosis are Vertigo, Nausea, Weakness. - Bed requested for Telemetry/MedSurg (observation). - Status is Observation. em - Condition is Stable. - Problem is an ongoing problem. - Symptoms are unchanged. Signatures: Dispatcher [employer] Elvie Castle RN RN dw Omkar Cho RN RN em Joao Julain MD MD rn Baxter, Heather, RN RN Corrections: (The following items were deleted from the chart) 10: 09:39 Hospitalization Ordered by Larry Powell DO for Observation. Preliminary dw diagnosis is Vertigo; Nausea; Weakness. Bed requested for Telemetry/MedSurg (observation). Status is Observation. Condition is Stable. Problem is an ongoing problem. Symptoms are unchanged. rn 11:33 10:28 09/02/2019 09:39 Hospitalization Ordered by Larry Powell DO for Observation. em Preliminary diagnosis is Vertigo; Nausea; Weakness. Bed requested for Telemetry/MedSurg (observation). Status is Observation. Condition is Stable. Problem is an ongoing problem. Symptoms are unchanged. dw
[2019-09-02] MEDS ORDERED: DICYCLOMINE HCL 10 MG CAP ONE (09:45)
[2019-09-02] MEDS ORDERED: PROMETHAZINE INJ 25 MG/ML AMP ONE (09:45)
[2019-09-02] MEDS ORDERED: HYDROCODONE/APAP 5/325 MG TAB PO PRN (11:50)
[2019-09-02] MEDS ORDERED: ONDANSETRON 4 MG/2 ML VIAL IV PRN (11:50)
[2019-09-02] MEDS ORDERED: TRAMADOL HCL 50 MG TAB PO PRN (11:50)
[2019-09-02] MEDS ORDERED: MORPHINE 2 MG/ML SYR IV PRN (11:50)
[2019-09-02] MEDS: INSULIN -REGULAR HUMAN 50 UNIT/0.5 ML ML SQ SCH ×3 (11:50→21:00)
[2019-09-02] MEDS ORDERED: MECLIZINE HCL 12.5 MG TAB PO PRN (11:50)
[2019-09-02] MEDS ORDERED: LACTULOSE 20 GM/30 ML UCUP PO PRN (11:50)
[2019-09-02 12:04] VITALS: BMI 27.8
--- NOTE | 2019-09-02 12:39 | P.HP ---
Certification for Inpatient Patient admitted to: Observation With expected LOS: <2 Midnights Patient will require the following post-hospital care: Home Health Services Practitioner: I am a practitioner with admitting privileges, knowledge of patient current condition, hospital course, and medical plan of care. Services: Services provided to patient in accordance with Admission requirements found in Title 42 Section 412.3 of the Code of Federal Regulations Patient History Date of Service: 09/02/19 [facility] Reason for admission: Headache, abdominal pain History of Present Illness: 79-year-old female with history of diabetes mellitus type 2 non-insulin dependent, hypertension, hyperlipidemia, hypothyroidism, vertigo and chronic abdominal pain. Patient was seen E yesterday in the emergency room. She reported vertigo and acute on chronic abdominal pain at that time. CT abdomen and pelvis with contrast unremarkable except a 5 cm fat supraumbilical ventral hernia. Patient was stabilized. She was sent home with antibiotics and medication for vertigo. The patient reports that the dizziness persisted. She reported some nausea and vomiting. She also reported some left upper quadrant abdominal pain. Patient denies any chest pain, shortness of breath. Patient reports chronic abdominal pain. She has not seen GI in the past. Patient also reports chronic vertigo with the use of meclizine from time to time. Patient denies any melena, rectal bleeding. No dysuria noted. In the ER patient was evaluated. CT head and neck angiogram unremarkable. Lab white count 9.1, hemoglobin 14.3. Platelet count 215. Sodium 135, potassium 3.4. BUN of 10, creatinine 0.9 with a GFR 61. Glucose 150. Previous CT scan of the abdomen from yesterday reviewed. No free air or acute abdomen noted. Urine culture shows mixed joel. Patient was admitted for observation. When I saw the patient ER, she reported some nausea. Patient still had some dizziness. Vital signs stable. Allergies No Known Allergies Allergy (Verified 04/12/12 12:22) Home medications list reviewed: Yes Home Medications: Olmesartan/Hydrochlorothiazide [Olmesartan-Hctz 40-12.5 mg Tab] 1 tab PO BID 09/02/19 - Past Medical/Surgical History Has patient received pneumonia vaccine in the past: No Diabetic: Yes -: Diabetes mellitus type 2 non-insulin dependent -: Hypertension -: Hyperlipidemia -: Hypothyroidism -: Vertigo -: Chronic abdominal pain -: GERD -: Appendectomy -: Cholecystectomy -: Hernia repair Psychosocial/ Personal History: Patient lives at home. She is - Family History Family History: Reviewed- Non-Contributory - Social History Smoking Status: Never smoker Alcohol use: No CD- Drugs: No Caffeine use: No Place of Residence: Home Review of Systems General: Weakness, As per HPI Eyes: Unremarkable ENT: Unremarkable Respiratory: Unremarkable Cardiovascular: Light Headedness, As per HPI Gastrointestinal: Nausea, Vomiting, Abdominal Pain, As per HPI Genitourinary: Unremarkable Musculoskeletal: As per HPI Integumentary: Unremarkable Neurological: As per HPI Lymphatics: Unremarkable Physical Examination - Vital Signs Temperature: 97.2 F Blood Pressure: 131/64 Pulse: 72 Respirations: 18 - Physical Exam General: Alert, In no apparent distress, Oriented x3, Cooperative HEENT: Atraumatic, Normocephalic, Other (Dry mucous membranes) Neck: Supple Respiratory: Clear to auscultation bilaterally, Normal air movement Cardiovascular: Normal pulses, Regular rate/rhythm Gastrointestinal: Normal bowel sounds, Soft and benign, Non-distended, No masses, No rebound, No guarding, Tenderness (Mild pain to the left upper quadrant) Musculoskeletal: No erythema, No tenderness, No warmth Integumentary: No tenderness/swelling, No erythema, No warmth, No cyanosis Neurological: Normal speech, Normal strength at 5/5 x4 extr, Normal tone, Normal affect - Studies Laboratory Data (last 24 hrs) 09/02/19 08:30: Sodium 135 L, Potassium 3.4 L, BUN 10, Creatinine 0.90, Glucose 150 H 09/02/19 08:30: WBC 9.1 D, Hgb 14.3, Hct 41.6, Plt Count 215 Assessment and Plan - Plan Impression: Dizziness suspect vertigo Left upper quadrant abdominal pain suspect enteritis versus related to supraumbilical ventral hernia Hypertension Diabetes mellitus type 2 [id number]-[id number] Hyperlipidemia Hypothyroidism GERD Chronic pain with noted degenerative/scoliotic changes in the spine Plan: Dizziness suspect vertigo: Patient will be admitted for further evaluation and observation. Will start aspirin, DVT prophylaxis. Will provide meclizine for dizziness. Will obtain MRI brain, echo, and carotid Doppler to further evaluate. Will start IV fluids for hydration. Patient may be slightly dehydrated. Will physical therapy assess ambulation. Will consult community mental health social worker for possible home health and physical therapy at discharge. Advance care planning and advanced directives address in detail. Patient is full code. As mentioned above patient agrees with home health and physical therapy at discharge. Abdominal pain may be enteritis. Will start Cipro and Flagyl IV. This may also be related to supraumbilical ventral hernia. Recommend no heavy lifting, pushing or pulling. This can be further evaluated by surgery as an outpatient. Anticipate discharge in the next 24 hr if unremarkable and with clinical improvement. I will turn the service over to the hospitalist team tomorrow. I will go the plan of care with him. Left upper quadrant abdominal pain suspect enteritis versus related to supraumbilical ventral hernia: CT scan from yesterday reviewed. Possible enteritis. Will start IV fluids and IV Cipro Flagyl. CT scan revealed a 5 cm fat only supraumbilical ventral hernia. Neck was 5 cm. This may also be related to her pain. This can be further evaluated by surgery as an outpatient. No heavy lifting, pushing or pulling. Degenerative and scoliotic changes are present in the spine. No acute finding. Degenerative changes are most pronounced at L2-3. Hypertension: Restart home medication. Will monitor and adjust appropriately. Diabetes mellitus type 2 [id number]-yjfhdgxcs: Will check A1c. Will provide sliding scale. Will monitor Accu-Cheks. Hyperlipidemia: Will start medication Hypothyroidism: Will need to obtain and restart home medication. Will check tsh and free T4. GERD: Will provide medication IV. Will recommend GI evaluation as an outpatient. Chronic pain with noted degenerative/scoliotic changes in the spine: Will provide medication for pain. Physical therapy to evaluate patient. Recommend home health and physical therapy at discharge. Discharge Plan: Home Plan to discharge in: 24 Hours - Advance Directives Does patient have a Living Will: No Does patient have a Durable POA for Healthcare: No - Code Status/Comfort Care Code Status Assessed: Yes (Patient is full code) Time Spent Managing Pts Care (In Minutes): 55 (Advanced care planning time-30 min)
[2019-09-02] MEDS ORDERED: PNEUMOCOCCAL VACCINE 0.5 ML IMVAC ONE (13:00)
[2019-09-02] MEDS: ENOXAPARIN 40 MG/0.4 ML SQ SCH (13:16)
[2019-09-02] MEDS: CIPROFLOXACIN 400mg IV 400 MG/200 ML BAG IV SCH ×2 (13:17→21:19)
[2019-09-02] MEDS: NA CHLORIDE 0.9% 1,000 ML IV SCH ×2 (13:17→21:50)
[2019-09-02] MEDS ORDERED: POTASSIUM 25 MEQ EFFERV TAB PO ONE (14:00)
[2019-09-02] MEDS: METRONIDAZOLE 500mg IVPB 500 MG/100 ML BAG IV SCH (16:59)
--- NOTE | 2019-09-02 19:30 | RAD REPORT ---
EXAM DESCRIPTION: - CP - 09/02/2019 7:20 pm CLINICAL HISTORY: Vertigo, diabetes/hypertension Headache, drowsiness COMPARISON: Neck Angio dated 09/02/2019 TECHNIQUE: Real-time sonographic evaluation of both carotid systems was performed. Doppler interroga tion was performed with waveform tracing bilaterally. FINDINGS: Normal high resistance waveforms are noted in both external carotid arteries. The common c arotid arteries and internal carotid arteries show normal low resistance waveforms. No significant plaque formation is seen. Peak systolic and end diastolic velocity values and the ICA/ CCA ratios are in the non-hemodynamically significant range. Antegrade flow seen in both vertebral arteries. IMPRESSION: No significant atherosclerotic changes noted. No evidence of a hemodynamically significant stenosis.
[2019-09-02] MEDS: DOCOSAHEXANOIC AC/EPA 1000 MG PO SCH (21:18)
[2019-09-02] MEDS: ATORVASTATIN 10 MG TAB PO SCH (21:19)
[2019-09-02] MEDS: FAMOTIDINE 20 MG/2 ML VIAL IV SCH (21:19)
[2019-09-02] MEDS: lisinopriL 20 MG TAB PO SCH (21:19)
[2019-09-02] MEDS: ACETAMINOPHEN 500 MG TAB PO PRN (21:22)
[2019-09-02 23:12] LABS: Urine Appearance CLEAR; Urine Bilirubin NEGATIVE (NEG); Urine Blood NEGATIVE (NEG); Urine Color YELLOW; Urine Glucose NEGATIVE (NEG); Urine Protein NEGATIVE (NEG); Urine Urobilinogen 0.2 mg/dL (0.2-1.0)
[2019-09-02 23:13] LABS: Urine Microscopic Reflex NO UMIC
[2019-09-03] MEDS: METRONIDAZOLE 500mg IVPB 500 MG/100 ML BAG IV SCH ×3 (00:05→16:56)
[2019-09-03] MEDS ORDERED: TEMAZEPAM 15 MG CAP PO PRN (00:53)
[2019-09-03 05:20] LABS: Absolute Lymphocytes (CBC) 2.8 K/uL (0.7-4.9); Basophils % 0.8 % (0-1.3); Hematocrit 37.5 % (36.0-45.0); Lymphocytes % 40.4 % (15.3-44.8); MPV 7.5 fL (7.6-11.3); RBC Red Blood Cell Count 4.32 M/uL (3.86-4.86)
[2019-09-03 05:21] LABS: Protime INR 1.15
[2019-09-03 05:52] LABS: Magnesium 1.5 mg/dL (1.8-2.4); Potassium 3.6 mmol/L (3.5-5.1)
[2019-09-03 05:56] LABS: Thyroid Stimulating Hormone 4.52 uIU/mL (0.360-3.740)
[2019-09-03] MEDS: INSULIN -REGULAR HUMAN 50 UNIT/0.5 ML ML SQ SCH ×4 (07:30→20:29)
--- NOTE | 2019-09-03 07:46 | EKG ---
Test Date: 2019-09-02 Test Time: 08:49:52 Marker Hand: MAIKOL MEASUREMENT RESULTS: Intervals: Rate: 84 CA: 168 QRSD: 100 QT: 392 QTc: 463 [place]: P: 45 CA: 168 QRS: -11 T: 24 INTERPRETIVE STATEMENTS: Normal sinus rhythm Normal ECG No previous ECG available for comparison Electronically Signed On 09-03-19 07:44:43 CDT by Randy Garcia
[2019-09-03] MEDS: NA CHLORIDE 0.9% 1,000 ML IV SCH ×2 (08:10→17:24)
[2019-09-03] MEDS: lisinopriL 20 MG TAB PO SCH ×2 (08:13→20:28)
[2019-09-03] MEDS: DOCOSAHEXANOIC AC/EPA 1000 MG PO SCH ×2 (08:13→20:28)
[2019-09-03] MEDS: FOLIC ACID 1 MG TABLET PO SCH (08:14)
[2019-09-03] MEDS: DOCUSATE NA 100 MG CAP PO SCH (08:14)
[2019-09-03] MEDS: ASPIRIN EC 81 MG TAB PO SCH (08:15)
[2019-09-03] MEDS: ENOXAPARIN 40 MG/0.4 ML SQ SCH (08:16)
[2019-09-03] MEDS ORDERED: REGADENOSON 0.4 MG/5 ML SYR IV ONE (08:33)
[2019-09-03] MEDS: CIPROFLOXACIN 400mg IV 400 MG/200 ML BAG IV SCH ×2 (08:56→20:29)
[2019-09-03] MEDS: FAMOTIDINE 20 MG/2 ML VIAL IV SCH ×2 (08:56→20:28)
[2019-09-03] MEDS ORDERED: Magnesium Sulfate 2gm IVPB 2 G/50 ML BAG IV ONE (09:00)
[2019-09-03] MEDS ORDERED: POTASSIUM CL SA 10 MEQ TAB PO ONE (09:00)
--- NOTE | 2019-09-03 12:38 | P.PN ---
Subjective Date of Service: 09/03/19 Primary Care Provider: [facility] Chief Complaint: Headache, abdominal pain Subjective: No new changes, C/O voiced (-still dizziness , some nausea on changing position -awaiting orthostatic vitals) Physical Examination - Vital Signs Temperature: 97.5 F Blood Pressure: 159/74 Pulse: 90 Respirations: 18 Pulse Ox (%): 96 - Physical Exam General: Alert, In no apparent distress, Oriented x3 HEENT: Atraumatic, Normocephalic, PERRLA Neck: 2+ carotid pulse no bruit, JVD not distended Respiratory: Clear to auscultation bilaterally, Normal air movement Cardiovascular: No edema, Normal pulses, Regular rate/rhythm, Normal S1 S2 Gastrointestinal: Normal bowel sounds, Soft and benign, Non-distended Musculoskeletal: No clubbing, No swelling Neurological: Normal speech, Other (reproducible dizziness ) - Studies Laboratory Last Values WBC 9.1 K/uL (4.3-10.9) D 09/02/19 08:30 RBC 4.78 M/uL (3.86-4.86) 09/02/19 08:30 Hgb 14.3 g/dL (12.0-15.0) 09/02/19 08:30 Hct 41.6 % (36.0-45.0) 09/02/19 08:30 MCV 86.9 fL (80-100) 09/02/19 08:30 MCH 29.8 pg (27.0-35.0) 09/02/19 08:30 MCHC 34.3 g/dL (32.0-36.0) 09/02/19 08:30 RDW 14.0 % (12.1-15.2) 09/02/19 08:30 Plt Count 215 K/uL (152-406) 09/02/19 08:30 MPV 7.7 fL (7.6-11.3) 09/02/19 08:30 Neutrophils % 75.1 % (41.7-73.7) H 09/02/19 08:30 Lymphocytes % 18.2 % (15.3-44.8) 09/02/19 08:30 Monocytes % 5.5 % (3.3-12.3) 09/02/19 08:30 Eosinophils % 0.8 % (0-4.4) 09/02/19 08:30 Basophils % 0.4 % (0-1.3) 09/02/19 08:30 Absolute Neutrophils 6.8 K/uL (1.8-8.0) 09/02/19 08:30 Absolute Lymphocytes 1.6 K/uL (0.7-4.9) 09/02/19 08:30 Absolute Monocytes 0.5 K/uL (0.1-1.3) 09/02/19 08:30 Absolute Eosinophils 0.1 K/uL (0-0.5) 09/02/19 08:30 Absolute Basophils 0.0 K/uL (0-0.5) 09/02/19 08:30 Sodium 135 mmol/L (136-145) L 09/02/19 08:30 Potassium 3.4 mmol/L (3.5-5.1) L 09/02/19 08:30 Chloride 99 mmol/L (98-107) 09/02/19 08:30 Carbon Dioxide 27 mmol/L (21-32) 09/02/19 08:30 BUN 10 mg/dL (7-18) 09/02/19 08:30 Creatinine 0.90 mg/dL (0.55-1.3) 09/02/19 08:30 Whole Bld Creatinine 0.7 mg/dL (0.6-1.3) 09/02/19 07:52 Estimated GFR 61 mL/min (=/>90) L 09/02/19 08:30 Glucose 150 mg/dL (74-106) H 09/02/19 08:30 POC Glucose 119 mg/dL (65-120) 09/02/19 11:43 Lactic Acid 3.3 mmol/L (0.4-2.0) H 09/02/19 12:09 Calcium 9.0 mg/dL (8.5-10.1) 09/02/19 08:30 Microbiology Data (last 24 hrs): 09/02/19 13:37 Nasopharnyx Coronavirus COVID-19 PCR - Final Assessment And Plan - Current Problems (Diagnosis) (1) Dizziness Current Visit: Yes Status: Acute (2) Diabetes mellitus Current Visit: Yes Status: Acute (3) HTN (hypertension) Current Visit: Yes Status: Acute Physician Review Additional Text: Dizziness suspect vertigo Left upper quadrant abdominal pain suspect enteritis versus related to supraumbilical ventral hernia Hypertension Diabetes mellitus type 2 [id number] Hyperlipidemia Hypothyroidism GERD Chronic pain with noted degenerative/scoliotic changes in the spine Plan: Dizziness suspect vertigo: -follow pending MRI brain and carotid US -c/w meclizine but will switched to scheduled rather than p.r.n. -c/w aspirin - obtain orthostatic vitals today - may be due to BPV vs posterior CVA Left upper quadrant abdominal pain suspect enteritis versus related to supraumbilical ventral hernia: possible entritis on CT abdomen - c/w IV flagyl and cipro -c/w IVF -c/w po intake - CT scan revealed a 5 cm fat only supraumbilical ventral hernia. Neck was 5 cm. This may also be related to her pain. Hypomagnesemia-will replete , may be due to enteritis Follow repeat level in a.m. Degenerative and scoliotic changes are present in the spine. No acute finding. Degenerative changes are most pronounced at L2-3. Hypertension: controlled Diabetes mellitus type 2 [id number]-htxtgnulu: stable , c/w accuchecks and insulin sliding scale. Hyperlipidemia: c/w medication Hypothyroidism: controlled GERD: follow GI evaluation as an outpatient. Chronic pain with noted degenerative/scoliotic changes in the spine: c/w pain regime , c/w Physical therapy to evaluate patient. Recommend home health and physical therapy at discharge.
[2019-09-03] MEDS ORDERED: MECLIZINE HCL 12.5 MG TAB PO PRN (12:39)
[2019-09-03] MEDS: carvediloL 3.125 MG TAB PO SCH (17:24)
[2019-09-03] MEDS: ATORVASTATIN 10 MG TAB PO SCH (20:28)
[2019-09-04] MEDS: METRONIDAZOLE 500mg IVPB 500 MG/100 ML BAG IV SCH ×2 (00:17→08:04)
[2019-09-04 04:50] LABS: Bilirubin Total 0.6 mg/dL (0.2-1.0); Magnesium 1.8 mg/dL (1.8-2.4); Potassium 3.8 mmol/L (3.5-5.1); Protein, Total 6.1 g/dL (6.4-8.2)
[2019-09-04] MEDS: NA CHLORIDE 0.9% 1,000 ML IV SCH ×2 (05:14→13:50)
[2019-09-04] MEDS: carvediloL 3.125 MG TAB PO SCH (05:14)
[2019-09-04] MEDS: INSULIN -REGULAR HUMAN 50 UNIT/0.5 ML ML SQ SCH ×3 (07:30→16:30)
[2019-09-04 07:54] VITALS: O2SAT 95
[2019-09-04] MEDS: DOCOSAHEXANOIC AC/EPA 1000 MG PO SCH (08:02)
[2019-09-04] MEDS: ENOXAPARIN 40 MG/0.4 ML SQ SCH (08:02)
[2019-09-04] MEDS: lisinopriL 20 MG TAB PO SCH (08:02)
[2019-09-04] MEDS: ASPIRIN EC 81 MG TAB PO SCH (08:03)
[2019-09-04] MEDS: FOLIC ACID 1 MG TABLET PO SCH (08:03)
[2019-09-04] MEDS: CIPROFLOXACIN 400mg IV 400 MG/200 ML BAG IV SCH (08:04)
[2019-09-04] MEDS: DOCUSATE NA 100 MG CAP PO SCH (08:04)
[2019-09-04] MEDS: FAMOTIDINE 20 MG/2 ML VIAL IV SCH (08:04)
--- NOTE | 2019-09-04 08:39 | ECHO ---
HEIGHT: 5 ft 3 in WEIGHT: 157 lb 6.4 oz DATE OF STUDY: 09/03/[address]: Larry Powell DO 2-DIMENSIONAL: YES M.MODE: YES DOPPLER: YES COLOR FLOW: YES TDS: NO PORTABLE: NO DEFINITY: NO BUBBLE STUDY: NO DIAGNOSIS: HYPERTENSION CARDIAC HISTORY: CATHERIZATION: NO SURGERY: NO PROSTHETIC VALVE: NO PACEMAKER: NO MEASUREMENTS (cm) DIASTOLIC (NORMALS) SYSTOLIC (NORMALS) IVSd 1.1 (0.6-1.2) LA Diam (1.9-4.0) LVEF 62% LVIDd 3.6 (3.5-5.7) LVIDs 2.4 (2.0-3.5) %FS 32% LVPWd 1.1 (0.6-1.2) Ao Diam 2.7 (2.0-3.7) 2 DIMENSIONAL ASSESSMENT: RIGHT ATRIUM: NORMAL LEFT ATRIUM: NORMAL RIGHT VENTRICLE: NORMAL LEFT VENTRICLE: NORMAL TRICUSPID VALVE: NORMAL MITRAL VALVE: NORMAL PULMONIC VALVE: NOT SEEN WELL AORTIC VALVE: NORMAL PERICARDIAL EFFUSION: MILD AORTIC ROOT: NORMAL LEFT VENTRICULAR WALL MOTION: NORMAL. DOPPLER/COLOR FLOW: NORMAL. COMMENTS: POOR WINDOWS, BUT LEFT VENTRICULAR EJECTION FRACTION WALL MOTION APPEARS TO BE NORMAL WITH LEFT VENTRICULAR EJECTION FRACTION OF 55-60%. TECHNOLOGIST: JAYDEN BAILON
[2019-09-04] MEDS ORDERED: MAGNESIUM SULFATE 1 gm IVPB 1 GM/100 ML BAG IV ONE (09:00)
[2019-09-04] MEDS ORDERED: POTASSIUM CL SA 10 MEQ TAB PO ONE (09:00)
[2019-09-04] MEDS: ACETAMINOPHEN 500 MG TAB PO PRN (09:08)
[2019-09-04 16:49] VITALS: BP 147/69; TEMP 97.6
[2019-09-04] MEDS ORDERED: SENOSIDES 8.6 MG TAB PO SCH (21:00)
--- NOTE | 2019-09-04 22:52 | DS ---
Date of Discharge: 09/04/2019 Admitting Diagnoses: 1.Dizziness, possible vertigo. 2.Left upper quadrant abdominal pain, likely enteritis. 3.Supraumbilical ventral hernia. 4.Essential hypertension. 5.Diabetes mellitus, type 2, non-insulin dependent with hyperglycemia. 6.Mixed hyperlipidemia. 7.Hypothyroidism. 8.Gastroesophageal reflux disease. 9.Chronic pain. 10.Degenerative disk disease. Discharge Diagnoses: 1.Dizziness, likely vertigo. 2.Left upper quadrant abdominal pain secondary to enteritis. We will continue with antibiotics, ora l antibiotics at home. 3.Supraumbilical ventral hernia. Patient to follow up with General Surgery for possible elective re pair. 4.Hypomagnesemia, replaced. 5.Essential hypertension, stable. 6.Diabetes mellitus, type 2 non-insulin dependent with hyperglycemia, stable. 7.Mixed hyperlipidemia, stable. 8.Hypothyroidism, on replacement. 9.Gastroesophageal reflux disease without esophagitis, stable. 10.Chronic pain syndrome secondary to degenerative disk disease. Hospital Course: Patient is a 79-year-old female with history of diabetes, hypertension, hyperlipide myriam, hypothyroidism, vertigo, chronic abdominal pain, comes in with headache and abdominal pain. CT scan of the abdomen and pelvis showed a 5 cm fat supraumbilical ventral hernia. Patient otherwise di d not have any melena or rectal bleeding. Her CT head and neck angiogram were also unremarkable. Wh ite blood cell count was normal. She did have some hypokalemia and hypomagnesemia which was correcte d. Her UA was negative. The patient's TSH was high. Her triglycerides were also elevated. Patient was counseled regarding diet modification. Patient's blood cultures did not show any growth to date . Carotid artery ultrasound was also negative for any hemodynamically significant stenosis. She did not have any significant atherosclerotic changes. Her echocardiogram showed EF of 62%. MRI of the brain was also done, results pending. CT of the neck did not show any significant flow abnormality. Head CTA also did not show any significant flow abnormality. Workup was done to rule out CVA as malka tigo may present as a CVA. Patient will need follow up as an outpatient with primary care physician in 2-3 days, follow up with neurologist, Dr. Andersen in 2-4 weeks, follow up with general surgeon of choice in 4-8 weeks to schedule possible elective surgery for ventral hernia. Activity: As tolerated. Physical Examination: General: Awake, alert, oriented x3, not in any acute distress. CV: S1, S2. No murmurs. Respiratory: Moving air well bilaterally. Abdomen: Soft, nontender, nondistended. Positive bowel sounds. Extremities: No clubbing, cyanosis, or edema. Neurologic: Nonfocal. Speech is normal. No facial asymmetry. Medications: As per medication reconciliation list. /MODTimothy Voice ID: [id number] Report ID: [id number]
== END 2019-09-04 17:34 | disposition home or self-care (01) | DRG 392 ==
LOC: ER 07:53 → ERHOLD 09:58 → 2ND 11:23 → OBSVTOIN 14:11
PROVIDERS: ADMIT Family Medicine; ATTEND Family Medicine
DX: K52.9 Noninfective gastroenteritis and colitis, unspecified (principal); R42 Dizziness and giddiness; K43.9 Ventral hernia without obstruction or gangrene; E11.65 Type 2 diabetes mellitus with hyperglycemia; E78.2 Mixed hyperlipidemia; E03.9 Hypothyroidism, unspecified; K21.9 Gastro-esophageal reflux disease without esophagitis; G89.4 Chronic pain syndrome; E83.42 Hypomagnesemia; I10 Essential (primary) hypertension; M51.36 Other intervertebral disc degeneration, lumbar region; E87.6 Hypokalemia; Z90.49 Acquired absence of other specified parts of digestive tract; Z20.828 Contact with and (suspected) exposure to other viral communicable diseases; Z79.84 Long term (current) use of oral hypoglycemic drugs; Z79.899 Other long term (current) drug therapy; Z90.710 Acquired absence of both cervix and uterus
CPT/HCPCS: 36415; 70496; 70498; 80048; 80053; 80061; 81003; 82565; 82947; 83036; 83605; 83735; 84132; 84439; 84443; 85025; 85610; 87040; 93005; 93306; 93880; 96361; 96374; 96375; 97116; 97161; 99285; G0378; J0744; J1650; J2405; J2550; J2785; J3475; J7030; J7040; J8597; Q9967; U0002

== ENCOUNTER 2020-09-15 15:13 | Emergency (ER) | payer SELFPAY ==
[2020-09-15] MEDS ORDERED: METOCLOPRAMIDE 10 MG/2mL INJ ONE ×2 (16:48→16:55)
[2020-09-15] MEDS ORDERED: KETOROLAC 30 MG/ML INJ ONE (16:48)
[2020-09-15] MEDS ORDERED: FAMOTIDINE 20 MG/2 ML VIAL IV ONE (16:49)
[2020-09-15] MEDS ORDERED: NA CHLORIDE 0.9% 1,000 ML ONE (16:49)
[2020-09-15 16:51] LABS: Protime INR 1.08
[2020-09-15 16:53] LABS: ALT/SGPT 22 U/L (12-78); AST/SGOT 20 U/L (15-37); Albumin 3.7 g/dL (3.4-5.0); Alkaline Phosphatase 85 U/L (45-117); BUN Blood Urea Nitrogen 15 mg/dL (7-18); Bicarbonate 25 mmol/L (21-32); Bilirubin Direct 0.1 mg/dL (0-0.2); Bilirubin Total 0.3 mg/dL (0.2-1.0); Glucose Level 126 mg/dL (74-106); Lipase 122 U/L (73-393); Magnesium 1.9 mg/dL (1.8-2.4); NT PRO-BNP 155 pg/mL (<450); Potassium 4.5 mmol/L (3.5-5.1); Protein, Total 7.7 g/dL (6.4-8.2); Sodium Level 138 mmol/L (136-145); Troponin (Emerg Dept Use Only) < 0.02 ng/mL (0.0-0.045)
[2020-09-15 16:54] LABS: Absolute Lymphocytes (CBC) 1.8 K/uL (0.7-4.9); Basophils % 1.2 % (0-1.3); Hematocrit 36.2 % (36.0-45.0); Lymphocytes % 28.8 % (15.3-44.8); RBC Red Blood Cell Count 4.01 M/uL (3.86-4.86)
--- NOTE | 2020-09-15 16:54 | RAD REPORT ---
EXAM DESCRIPTION: RAD - Chest Single View - 09/15/2020 4:46 pm CLINICAL HISTORY: CHEST PAIN Chest pain. COMPARISON: Chest Single View dated 09/01/2019; CHEST SINGLE VIEW dated 12/05/2013; CHEST SINGLE VIEW d ated 04/12/2012 FINDINGS: Portable technique limits examination quality. The lungs are grossly clear. The heart is mildly enlarged in size. No displaced fractures. IMPRESSION: No acute intrathoracic process suspected.
--- NOTE | 2020-09-15 17:23 | RAD REPORT ---
EXAM DESCRIPTION: CT - Head Brain Wo Cont - 09/15/2020 5:18 pm CLINICAL HISTORY: PAIN Headache, drowsiness COMPARISON: Head angio dated 09/02/2019; Head Brain Wo Cont dated 09/01/2019 TECHNIQUE: All CT scans are performed using dose optimization technique as appropriate and may inclu de automated exposure control or mA/KV adjustment according to patient size. FINDINGS: No intracranial hemorrhage, hydrocephalus or extra-axial fluid collection.Generalized brai n atrophy.No areas of brain edema or evidence of midline shift. The paranasal sinuses and mastoids are clear. The calvarium is intact. IMPRESSION: No acute intracranial abnormality.
--- NOTE | 2020-09-15 17:37 | RAD REPORT ---
EXAM DESCRIPTION: CTAbdomen Pelvis W Contrast - 09/15/2020 5:23 pm CLINICAL HISTORY: Abdominal pain. ABD PAIN COMPARISON: Abdomen Pelvis W Contrast dated 09/01/2019; Abdomen Pelvis W Contrast dated 12/02/2018; Abdomen Pelvis W Contrast dated 05/23/2016; Head Brain Wo Cont dated 09/15/2020 TECHNIQUE: Biphasic CT imaging of the abdomen and pelvis was performed with 100 ml non-ionic IV cont rast. All CT scans are performed using dose optimization technique as appropriate and may include automated exposure control or mA/KV adjustment according to patient size. FINDINGS: The lung bases are clear. The liver, spleen, pancreas, adrenal glands and kidneys are within normal limits. Moderate fat contai adiel ventral hernia is present. No bowel obstruction, free air, free fluid or abscess. Sigmoid diverticulosis coli is present without diverticulitis. The appendix is normal. No evidence of significant lymphadenopathy. Moderate lumbosacral degenerative changes. IMPRESSION: Moderate sigmoid diverticulosis without diverticulitis. Moderate fat containing ventral hernia.
--- NOTE | 2020-09-15 17:41 | ER ---
Nurse's Notes [facility] Name: Kristy Serrano Age: 80 yrs Sex: Female : 1940 Arrival Date: 09/15/2020 Time: 15:14 Bed 5 Private MD: Diagnosis: Ventral hernia without obstruction or gangrene;Generalized abdominal pain;Headache Presentation: 09/15 15:22 Chief complaint: Patient states: CP, [place], N/V fort 1 week. Not eating or sleeping well. ll1 Son 2 weeks ago, lots of family stress. No fever. Coronavirus screen: Client denies travel out of the [place] in the last 14 days. At this time, the client does not indicate any symptoms associated with coronavirus-19. Ebola Screen: Patient denies travel to an Ebola-affected area in the 21 days before illness onset. Initial Sepsis Screen: Does the patient meet any 2 criteria? No. Patient's initial sepsis screen is negative. Does the patient have a suspected source of infection? No. Patient's initial sepsis screen is negative. Risk Assessment: Do you want to hurt yourself or someone else? Patient reports no desire to harm self or others. Onset of symptoms was September 08, 2020. 15:22 Method Of Arrival: Ambulatory [facility] 15:22 Acuity: MAYKEL 3 ll1 Historical: - Allergies: 15:25 No Known Allergies; ll1 - PMHx: 15:25 Diabetes - NIDDM; Hyperlipidemia; Hypertension; Thyroid problem; ll1 - PSHx: 15:25 Cholecystectomy; Hysterectomy; Hernia repair; ll1 - Immunization history:: Client reports having NOT received the Covid vaccine. Flu vaccine is not up to date. - Social history:: Smoking status: Patient denies any tobacco usage or history of. - Family history:: not pertinent. Screenin:35 Abuse screen: Denies threats or abuse. Nutritional screening: No deficits noted. aa5 Tuberculosis screening: No symptoms or risk factors identified. Fall Risk None identified. Assessment: 15:35 General: Appears uncomfortable, Behavior is calm, cooperative, Reports lack of sleep aa5 since son 2 weeks ago. . Pain: Complains of pain in head, right upper quadrant and left upper quadrant Pain currently is 10 out of 10 on a pain scale. Quality of pain is described as sharp, shooting, Pain began approximately 1 week ago Is continuous. Neuro: Level of Consciousness is awake, alert, obeys commands, Oriented to person, place, time, situation, Appropriate for age Surgical Sales Representative are equal bilaterally Moves all extremities. Speech is normal, Facial symmetry appears normal, Reports headache Frontal radiating to occipital area. Cardiovascular: Heart tones S1 S2 present Rhythm is regular. Respiratory: Airway is patent Respiratory effort is even, unlabored, Respiratory pattern is regular, symmetrical. GI: Abdomen is round non-distended, Bowel sounds present X 4 quads. Abd is soft and non tender X 4 quads. Reports nausea, vomiting, Decreased appetite x 2 weeks (when her son ). : No signs and/or symptoms were reported regarding the genitourinary system. EENT: No signs and/or symptoms were reported regarding the EENT system. Derm: Skin is pink, warm \T\ dry. Musculoskeletal: Range of motion: intact in all extremities. 17:00 Reassessment: Pt currently at radiology . aa5 17:34 Reassessment: Pt back from CT scan . aa5 17:35 Reassessment: Patient is alert, oriented x 3, equal unlabored respirations, skin aa5 warm/dry/pink. Pain: Pain currently is 8 out of 10 on a pain scale. 18:30 Reassessment: Patient is alert, oriented x 3, equal unlabored respirations, skin aa5 warm/dry/pink. Patient states symptoms have improved. Vital Signs: 15:22 BP 169 / 82; Pulse 87; Resp 18; Temp 98.0; Pulse Ox 99% ; Height 5 ft. 0 in. (152.40 ll1 cm); Pain 10/10; 17:35 BP 162 / 80; Pulse 99; Resp 16 S; Pulse Ox 98% on R/A; Pain 8/10; aa5 18:30 BP 158 / 67; Pulse 98; Resp 16 S; Pulse Ox 97% on R/A; aa5 ED Course: 15:14 Patient arrived in ED. as 15:24 Triage completed. ll1 15:25 Arm band placed on Patient placed in an exam room, on a stretcher. ll1 15:35 Patient has correct armband on for positive identification. Placed in gown. Bed in low aa5 position. Call light in reach. Side rails up X2. quality assurance monitor body on. Pulse ox on. NIBP on. 16:01 Sallie Chaudhari, LUCINA is Primary Nurse. aa5 16:02 Jeannine Rashid MD is Attending Physician. ma2 16:05 Initial lab(s) drawn, by me, sent to lab. Inserted saline lock: 20 gauge in right aa5 antecubital area, using aseptic technique. Blood collected. 16:15 EKG done, by ED staff, reviewed by Jeannine Rashid MD. em1 17:34 No provider procedures requiring assistance completed. Patient maintains SpO2 aa5 saturation greater than 95% on room air. 17:40 Jose Ford MD is Referral Physician. ma2 19:00 IV discontinued, intact, bleeding controlled, No redness/swelling at site. Pressure aa5 dressing applied. Administered Medications: 16:37 Drug: NS 0.9% 1000 ml Route: IV; Rate: 1 bolus; Site: right antecubital; aa5 17:35 Follow up: IV Status: Completed infusion; IV Intake: 1000ml aa5 16:37 Drug: Pepcid (famotidine) 10 mg Route: IVP; Site: right antecubital; aa5 16:45 Follow up: Response: No adverse reaction aa5 16:38 Drug: Reglan (metoCLOPramide) 20 mg Route: IVP; Site: right antecubital; aa5 17:45 Follow up: Response: No adverse reaction aa5 16:38 Drug: TORadol (ketorolac) 30 mg Route: IVP; Site: right antecubital; aa5 16:45 Follow up: Response: No adverse reaction aa5 18:06 Drug: [place] (HYDROcodone-acetaminophen) 10 mg-325 mg 1 tabs Route: PO; aa5 19:00 Follow up: Response: No adverse reaction aa5 Intake: 17:35 IV: 1000ml; Total: 1000ml. aa5 Outcome: 17:41 Discharge ordered by . ma2 19:00 Discharged to home via wheelchair, with friend. aa5 19:00 Condition: improved 19:00 Discharge instructions given to patient, Instructed on discharge instructions, follow up and referral plans. medication usage, Demonstrated understanding of instructions, follow-up care, medications, Prescriptions given X 2. 19:12 Patient left the ED. aa5 Signatures: Ju Holley Eric em1 Sallie Chaudhari RN RN aa5 Jeannine Rashid MD MD ma2 Ritika Chacon RN RN ll1 Corrections: (The following items were deleted from the chart) :16 17:45 Response: No adverse reaction aa5 aa5 19:16 16:45 Response: No adverse reaction aa5 aa5 19:17 18:30 Reassessment: Patient is alert, oriented x 3, equal unlabored respirations, skin aa5 warm/dry/pink. aa5
--- NOTE | 2020-09-15 17:41 | EDPHYS ---
Physician Documentation [facility] Name: Kristy Serrano Age: 80 yrs Sex: Female : 1940 Arrival Date: 09/15/2020 Time: 15:14 Bed 5 Private MD: ED Physician Jeannine Rashid HPI: 09/15 16:29 This 80 yrs old Female presents to ER via Ambulatory with complaints of ma2 Headache, Vomiting. 16:29 Associated signs and symptoms: Pertinent positives: abdominal pain, Pertinent ma2 negatives: cough, headache, lightheadedness, nausea. Severity of pain: At its worst the pain was mild in the emergency department the pain is unchanged. The patient has experienced similar episodes in the past. here with headache and epigastric abd pain, vomited yesterday, no chest pain or angina equivalent . Historical: - Allergies: 15:25 No Known Allergies; ll1 - PMHx: 15:25 Diabetes - NIDDM; Hyperlipidemia; Hypertension; Thyroid problem; ll1 - PSHx: 15:25 Cholecystectomy; Hysterectomy; Hernia repair; ll1 - Immunization history:: Client reports having NOT received the Covid vaccine. Flu vaccine is not up to date. - Social history:: Smoking status: Patient denies any tobacco usage or history of. - Family history:: not pertinent. ROS: 16:29 Constitutional: Negative for fever, chills, and weight loss. ma2 16:29 All other systems are negative. Exam: 16:29 Constitutional: This is a well developed, well nourished patient who is awake, alert, ma2 and in no acute distress. Head/Face: Normocephalic, atraumatic. Neck: Trachea midline, no thyromegaly or masses palpated, and no cervical lymphadenopathy. Supple, full range of motion without nuchal rigidity, or vertebral point tenderness. No Meningismus. Chest/axilla: Normal chest wall appearance and motion. Nontender with no deformity. No lesions are appreciated. Cardiovascular: Regular rate and rhythm with a normal S1 and S2. No gallops, murmurs, or rubs. Normal PMI, no JVD. No pulse deficits. Respiratory: Lungs have equal breath sounds bilaterally, clear to auscultation and percussion. No rales, rhonchi or wheezes noted. No increased work of breathing, no retractions or nasal flaring. Abdomen/GI: Soft, non-tender, with normal bowel sounds. No distension or tympany. No guarding or rebound. No evidence of tenderness throughout. Back: No spinal tenderness. No costovertebral tenderness. Full range of motion. Skin: Warm, dry with normal turgor. Normal color with no rashes, no lesions, and no evidence of cellulitis. MS/ Extremity: Pulses equal, no cyanosis. Neurovascular intact. Full, normal range of motion. Neuro: Awake and alert, GCS 15, oriented to person, place, time, and situation. Cranial nerves II-XII grossly intact. Motor strength 5/5 in all extremities. Sensory grossly intact. Cerebellar exam normal. Normal gait. Vital Signs: 15:22 BP 169 / 82; Pulse 87; Resp 18; Temp 98.0; Pulse Ox 99% ; Height 5 ft. 0 in. (152.40 ll1 cm); Pain 10/10; 17:35 BP 162 / 80; Pulse 99; Resp 16 S; Pulse Ox 98% on R/A; Pain 8/10; aa5 18:30 BP 158 / 67; Pulse 98; Resp 16 S; Pulse Ox 97% on R/A; aa5 MDM: 16:03 Patient medically screened. ma2 16:29 Differential diagnosis: anxiety, chest wall pain, esophagitis, gastritis, ma2 gastroesophageal reflux disease (GERD), pancreatitis. 17:36 Data reviewed: vital signs, nurses notes. Response to treatment: the patient's symptoms ma2 have markedly improved after treatment. ED course: no chest pain. 17:40 Counseling: I had a detailed discussion with the patient and/or guardian regarding: the ma2 historical points, exam findings, and any diagnostic results supporting the discharge/admit diagnosis, the presence of at least one elevated blood pressure reading (>120/80) during this emergency department visit, the need for outpatient follow up. 09/15 16:04 Order name: Basic Metabolic Panel [facility] 09/15 16:04 Order name: CBC with Diff [facility] 09/15 16:04 Order name: LFT's [facility] 09/15 16:04 Order name: Magnesium [facility] 09/15 16:04 Order name: NT PRO-BNP [facility] 09/15 16:04 Order name: PT-INR [facility] 09/15 16:04 Order name: Troponin (emerg Dept Use Only) ny09/15 16:06 Order name: Lipase [facility] 09/15 16:53 Order name: Basic Metabolic Panel; Complete Time: 17:35 EDMS 09/15 16:53 Order name: Liver (Hepatic) Function; Complete Time: 17:35 EDMS 09/15 16:53 Order name: Troponin (Emerg Dept Use Only); Complete Time: 17:35 EDMS 09/15 16:53 Order name: NT PRO-BNP; Complete Time: 17:35 EDMS 09/15 16:53 Order name: Magnesium; Complete Time: 17:35 EDMS 09/15 16:54 Order name: Lipase; Complete Time: 17:35 EDMS 09/15 16:04 Order name: XRAY Chest (1 view) ny09/15 16:04 Order name: EKG; Complete Time: 16:04 [facility] 09/15 16:04 Order name: Cardiac monitoring; Complete Time: 16:18 [facility] 09/15 16:04 Order name: EKG - Nurse/Tech; Complete Time: 16:15 ny09/15 16:11 Order name: CT Head Brain wo Cont ny09/15 16:11 Order name: CT Abd/Pelvis - IV Contrast Only ny09/15 16:56 Order name: RAD; Complete Time: 17:35 EDMS 09/15 17:05 Order name: Protime (+INR); Complete Time: 17:35 EDMS 09/15 17:07 Order name: CBC with Automated Diff; Complete Time: 17:35 EDMS 09/15 17:24 Order name: CT; Complete Time: 17:35 EDMS 09/15 17:38 Order name: CT; Complete Time: 17:39 EDMS 09/15 16:04 Order name: IV Saline Lock; Complete Time: 16:18 ny09/15 16:04 Order name: Labs collected and sent; Complete Time: 16:18 [facility] 09/15 16:04 Order name: O2 Per Protocol; Complete Time: 16:18 [facility] 09/15 16:04 Order name: O2 Sat Monitoring; Complete Time: 16:18 ma2 Administered Medications: 16:37 Drug: NS 0.9% 1000 ml Route: IV; Rate: 1 bolus; Site: right antecubital; aa5 17:35 Follow up: IV Status: Completed infusion; IV Intake: 1000ml aa5 16:37 Drug: Pepcid (famotidine) 10 mg Route: IVP; Site: right antecubital; aa5 16:45 Follow up: Response: No adverse reaction aa5 16:38 Drug: Reglan (metoCLOPramide) 20 mg Route: IVP; Site: right antecubital; aa5 17:45 Follow up: Response: No adverse reaction aa5 16:38 Drug: TORadol (ketorolac) 30 mg Route: IVP; Site: right antecubital; aa5 16:45 Follow up: Response: No adverse reaction aa5 18:06 Drug: [place] (HYDROcodone-acetaminophen) 10 mg-325 mg 1 tabs Route: PO; aa5 19:00 Follow up: Response: No adverse reaction aa5 Disposition: 09/15/20 17:41 Discharged to Home. Impression: Ventral hernia without obstruction or gangrene, Generalized abdominal pain, Headache. - Condition is Stable. - Discharge Instructions: Migraine Headache, Ventral Hernia. - Prescriptions for Reglan 10 mg Oral Tablet - take 1 tablet by ORAL route every 6 hours take 30 minutes before meals and at bedtime; 20 tablet. Pepcid 20 mg Oral Tablet - take 1 tablet by ORAL route once daily for 10 days; 10 tablet. - Medication Reconciliation Form, Thank You Letter, Antibiotic Education, Prescription Opioid Use form. - Follow up: Jose Ford MD; When: Tomorrow; Reason: If symptoms return, Continuance of care. Follow up: Private Physician; When: Tomorrow; Reason: If symptoms return, Continuance of care. Signatures: Dispatcher [employer] EDMS Sallie Chaudhari RN RN aa5 Jeannine Rashid MD MD ma2 Ritika Chacon RN RN ll1 Corrections: (The following items were deleted from the chart) 18:48 16:06 Urine Dipstick-Ancillary ordered. mauri schwab 19:12 17:41 09/15/2020 17:41 Discharged to Home. Impression: Ventral hernia without aa5 obstruction or gangrene; Generalized abdominal pain; Headache. Condition is Stable. Prescriptions for Reglan 10 mg Oral Tablet - take 1 tablet by ORAL route every 6 hours take 30 minutes before meals and at bedtime; 20 tablet, Pepcid 20 mg Oral Tablet - take 1 tablet by ORAL route once daily for 10 days; 10 tablet. and Forms are Medication Reconciliation Form, Thank You Letter, Antibiotic Education, Prescription Opioid Use. Follow up: Jose Ford; When: Tomorrow; Reason: If symptoms return, Continuance of care. Follow up: Private Physician; When: Tomorrow; Reason: If symptoms return, Continuance of care. ma2
[2020-09-15] MEDS ORDERED: HYDROCODONE/APAP 10/325 TAB ONE (18:23)
[2020-09-15 20:08] VITALS: BP 169/82; TEMP 98; O2SAT 99
--- NOTE | 2020-09-17 16:33 | EKG ---
Test Date: 2020-09-15 Test Time: 16:14:17 Data Acquisition Technician: MALISSA MEASUREMENT RESULTS: Intervals: Rate: 77 WY: 154 QRSD: 84 QT: 388 QTc: 439 [place]: P: 70 WY: 154 QRS: -34 T: 40 INTERPRETIVE STATEMENTS: Normal sinus rhythm Left axis deviation Low voltage QRS Cannot rule out Anterior infarct, age undetermined Abnormal ECG Compared to ECG 09/02/2019 08:49:52 Left-axis deviation now present Low QRS voltage now present Myocardial infarct finding now present Electronically Signed On 09-17-20 16:30:05 CDT by Randy Garcia
== END 2020-09-15 19:12 | disposition home or self-care (01) ==
LOC: ER 15:13
DX: R51.9 Headache, unspecified (principal); K43.9 Ventral hernia without obstruction or gangrene; R10.84 Generalized abdominal pain; E11.9 Type 2 diabetes mellitus without complications; E78.5 Hyperlipidemia, unspecified; I10 Essential (primary) hypertension; E07.9 Disorder of thyroid, unspecified
CPT/HCPCS: 36415; 70450; 71045; 74177; 80048; 80076; 83690; 83735; 83880; 84484; 85025; 85610; 93005; 96361; 96374; 96375; 99285; J2765; J7030; Q9967

== ENCOUNTER 2021-03-19 20:17 | Emergency (ER) | payer SELFPAY ==
[2021-03-19 20:45] LABS: Absolute Lymphocytes (CBC) 2.3 K/uL (0.7-4.9); Basophils % 1.3 % (0-1.3); Hematocrit 35.5 % (36.0-45.0); Lymphocytes % 28.7 % (15.3-44.8); MPV 7.3 fL (7.6-11.3); RBC Red Blood Cell Count 4.14 M/uL (3.86-4.86)
[2021-03-19 20:48] LABS: Protime INR 1.12
[2021-03-19 21:15] LABS: BUN Blood Urea Nitrogen 12 mg/dL (7-18); Bicarbonate 24 mmol/L (21-32); Glucose Level 109 mg/dL (74-106); Potassium 3.5 mmol/L (3.5-5.1); Sodium Level 132 mmol/L (136-145); Troponin (Emerg Dept Use Only) < 0.02 ng/mL (0.0-0.045)
[2021-03-19 21:16] LABS: NT PRO-BNP 118 pg/mL (<450)
[2021-03-19] MEDS ORDERED: cloNIDine HCL 0.1 MG TAB ONE ×2 (21:24→22:19)
--- NOTE | 2021-03-19 21:31 | RAD REPORT ---
EXAM DESCRIPTION: [place] Single View03/19/2021 9:08 pm CLINICAL HISTORY: Hypertension COMPARISON: August 2020 FINDINGS: The lungs appear clear of acute infiltrate. The heart is normal size IMPRESSION: No acute abnormalities displayed
[2021-03-19] MEDS ORDERED: NA CHLORIDE 0.9% 500 ML ONE (22:19)
--- NOTE | 2021-03-19 22:25 | EDPHYS ---
Physician Documentation [facility] Name: Kristy Serrano Age: 80 yrs Sex: Female : 1940 Arrival Date: 03/19/2021 Time: 20:18 Bed 6 Private MD: ED Physician Joao Julian HPI: 03/19 20:30 This 80 yrs old Female presents to ER via Unassigned with complaints of rn Hypertension, headache. 20:30 The patient complains of pain to the forehead. The patient describes the headache as rn aching. Onset: The symptoms/episode began/occurred 2 week(s) ago. Associated signs and symptoms: Pertinent negatives: altered mental status, dizziness, fever, neck stiffness, rash, vision changes, vision loss, vomiting, weakness, vertigo. Severity of symptoms: At its worst the pain was moderate, in the emergency department the pain is unchanged. Headache History: The patient has had previous headaches and this one is similar to previous episodes. The symptoms are alleviated by nothing. the symptoms are aggravated by nothing. The patient has experienced similar episodes in the past. The patient has been recently seen by a physician:. Patient reports has been having high blood pressure for the last 2 weeks and medication is not working. Has been having frontal headache with the blood pressure. Seen by PCP last week and told of blood pressure was not coming down with her regular medications and headache did not improve to go to ER. Patient is here for that reason. Denies any fever or feeling sick. Patient denies any chest pain/abdominal pain/shortness of breath/vomiting/diarrhea. Denies any blood in the stool. Denies any focal neurological problem. Denies vision changes or loss.. Historical: - Allergies: 21:00 No Known Allergies; lp1 - Home Meds: 20:58 gemfibrozil 600 mg Oral tab 1 tab 2 times per day [Active]; lisinopril 20 mg Oral tab 1 lp1 tab BID [Active]; metformin 1,000 mg Oral tab 1 tab 1 tab in QAM and 1/2 tab QPM [Active]; - PMHx: 20:58 Diabetes - NIDDM; Hyperlipidemia; Hypertension; Thyroid problem; lp1 - Immunization history:: Adult Immunizations up to date. - Family history:: not pertinent. - Social history:: Smoking status: unknown. - Hospitalizations: : No recent hospitalization is reported. ROS: 20:30 Constitutional: Negative for fever, chills, and weight loss, Eyes: Negative for injury, rn pain, redness, and discharge, Neck: Negative for injury, pain, and swelling, Cardiovascular: Negative for chest pain, palpitations, and edema, Respiratory: Negative for shortness of breath, cough, wheezing, and pleuritic chest pain, Abdomen/GI: Negative for abdominal pain, nausea, vomiting, diarrhea, and constipation, Back: Negative for injury and pain, MS/Extremity: Negative for injury and deformity, Skin: Negative for injury, rash, and discoloration, Neuro: Negative for weakness, numbness, tingling, and seizure. 20:30 All other systems are negative. Exam: 20:30 Constitutional: This is a well developed, well nourished patient who is awake, alert, rn and in no acute distress. Head/Face: Normocephalic, atraumatic. Eyes: Periorbital areas with no swelling, redness, or edema. Neck: Trachea midline, no masses palpated. Supple, full range of motion without nuchal rigidity, or vertebral point tenderness. No Meningismus. Cardiovascular: Regular rate and rhythm. No pulse deficits. Respiratory: Speaking full sentences, unlabored. No increased work of breathing, no retractions or nasal flaring. Abdomen/GI: Soft, non-tender, no masses Skin: Warm, dry MS/ Extremity: Pulses equal, no cyanosis. Neurovascular intact. Full, normal range of motion. Equal circumference. Neuro: Awake and alert, GCS 15, oriented to person, place, time, and situation. Cranial nerves II-XII grossly intact. Motor strength 5/5 in all extremities. Sensory grossly intact. Cerebellar exam normal. 20:53 ECG was reviewed by the Attending Physician. rn Vital Signs: 20:20 BP 200 / 102; Pulse 99; Resp 20; Temp 97.5; Pulse Ox 100% on R/A; lp1 22:00 BP 178 / 112; Pulse 98; Resp 18 S; Pulse Ox 98% on R/A; as6 22:23 BP 142 / 79; rn 22:50 BP 113 / 65; Pulse 79; Resp 16 S; Pulse Ox 98% on R/A; as6 23:22 BP 111 / 70; Pulse 72; Resp 18; Pulse Ox 100% on R/A; tw5 Homa Coma Score: 22:23 Eye Response: spontaneous(4). Verbal Response: oriented(5). Motor Response: obeys rn commands(6). Total: 15. MDM: 20:24 Patient medically screened. rn 21:53 Refusal of service: The patient/guardian displays adequate decision making capability rn and despite a detailed discussion of alternatives, benefits, risks, and consequences refuses: CT Scan. 22:23 Differential diagnosis: hypertensive headache, intracerebral hemorrhage, migraine, rn subarachnoid bleed, tension headache, vasomotor headache. Data reviewed: vital signs, nurses notes, lab test result(s), EKG, and as a result, I will discharge patient. Counseling: I had a detailed discussion with the patient and/or guardian regarding: the historical points, exam findings, and any diagnostic results supporting the discharge/admit diagnosis, lab results, the need for outpatient follow up, to return to the emergency department if symptoms worsen or persist or if there are any questions or concerns that arise at home. Counseling: I had a detailed discussion with the patient and/or guardian regarding: the presence of at least one elevated blood pressure reading (>120/80) during this emergency department visit. Special discussion: I have referred the patient to see his PCP for further evaluation of high blood pressure. I discussed with the patient/guardian in detail that at this point there is no indication for admission to the hospital. It is understood, however, that if the symptoms persist or worsen the patient needs to return immediately for re-evaluation. ED course: Patient feels much better. Still refuses imaging. Blood pressure down to 142/79. Will DC home with PCP follow-up and continuation of her blood pressure medication.. 03/19 20:24 Order name: Basic Metabolic Panel; Complete Time: 21: rn 03/19 20:24 Order name: CBC with Diff; Complete Time: 21: rn 03/19 20:24 Order name: NT PRO-BNP; Complete Time: 21: rn 03/19 20:24 Order name: PT-INR; Complete Time: 21: rn 03/19 20:24 Order name: Troponin (emerg Dept Use Only); Complete Time: 21: rn 03/19 20:24 Order name: XRAY Chest (1 view); Complete Time: 21: rn 03/19 20:24 Order name: EKG; Complete Time: 20:25 rn 03/19 20:24 Order name: Cardiac monitoring; Complete Time: 21: rn 03/19 20:24 Order name: EKG - Nurse/Tech; Complete Time: 20:56 rn 03/19 20:24 Order name: IV Saline Lock; Complete Time: 21:26 rn 03/19 20:24 Order name: Labs collected and sent; Complete Time: : rn 03/19 20:24 Order name: O2 Per Protocol; Complete Time: : rn 03/19 20:24 Order name: O2 Sat Monitoring; Complete Time: 21: rn EC:53 Rate is 99 beats/min. Rhythm is regular. Left axis deviation noted. QRS is positive in rn lead I and negative in lead aVF. FL interval is normal. QRS interval is normal. QT interval is normal. No Q waves. T waves are Normal. No ST changes noted. Clinical impression: NSR w/ Non-specific ST/T Changes. Interpreted by me. Reviewed by me. Administered Medications: :26 Drug: cloNIDine 0.1 mg Route: PO; as6 23:23 Follow up: Response: No adverse reaction; Blood pressure is lowered tw5 22:28 Drug: NS 0.9% 500 ml Route: IV; Rate: bolus; Site: left antecubital; as6 23:23 Follow up: IV Status: Completed infusion tw5 22:28 Not Given (Hemodynamic Parameters): cloNIDine 0.1 mg PO once as6 Disposition Summary: 03/19/21 23:13 Discharge Ordered Location: Home(03/19/21 23:13) rn Problem: an ongoing problem(03/19/21 23:13) rn Symptoms: have improved(03/19/21 23:13) rn Condition: Stable(03/19/21 23:13) rn Diagnosis - Headache(03/19/21 23:13) rn - Essential (primary) hypertension(03/19/21 23:13) rn Followup: rn - With: Private Physician - When: As needed - Reason: Recheck today's complaints, Re-evaluation by your physician Discharge Instructions: - Discharge Summary Sheet rn - Hypertension, Adult rn Forms: - Medication Reconciliation Form rn - Thank You Letter 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 EDMS EDMS : 20:23 Head Angio+CT.RAD.BRZ ordered. EDMS EDMS : 22:24 Home rn rn : 22:24 chronic rn rn : 22:24 have improved rn rn : 22:24 Stable rn rn : 22:24 Essential (primary) hypertension rn rn : 22:24 Headache rn rn
--- NOTE | 2021-03-19 22:25 | ER ---
Nurse's Notes [facility] Name: Kristy Serarno Age: 80 yrs Sex: Female : 1940 Arrival Date: 03/19/2021 Time: 20:18 Bed 6 Private MD: Diagnosis: Headache;Essential (primary) hypertension Presentation: 03/19 20:18 Acuity: MAYKEL 2 lp1 20:20 Chief complaint: EMS states: Called for patient with headache x 2 weeks, high BP; lp1 200/100 per EMS. 20:20 Coronavirus screen: At this time, the client does not indicate any symptoms associated lp1 with coronavirus-19. Ebola Screen: No symptoms or risks identified at this time. Initial Sepsis Screen: Does the patient meet any 2 criteria? No. Patient's initial sepsis screen is negative. Does the patient have a suspected source of infection? No. Patient's initial sepsis screen is negative. Risk Assessment: Do you want to hurt yourself or someone else? Patient reports no desire to harm self or others. Onset of symptoms was March 19, 2021. 20:20 Method Of Arrival: EMS: [facility] lp1 Triage Assessment: 23:22 General: Appears in no apparent distress. Behavior is calm, cooperative, appropriate tw5 for age. Historical: - Allergies: 21:00 No Known Allergies; lp1 - Home Meds: 20:58 gemfibrozil 600 mg Oral tab 1 tab 2 times per day [Active]; lisinopril 20 mg Oral tab 1 lp1 tab BID [Active]; metformin 1,000 mg Oral tab 1 tab 1 tab in QAM and 1/2 tab QPM [Active]; - PMHx: 20:58 Diabetes - NIDDM; Hyperlipidemia; Hypertension; Thyroid problem; lp1 - Immunization history:: Adult Immunizations up to date. - Family history:: not pertinent. - Social history:: Smoking status: unknown. - Hospitalizations: : No recent hospitalization is reported. Screenin:57 Abuse screen: Denies threats or abuse. Nutritional screening: No deficits noted. as6 Tuberculosis screening: No symptoms or risk factors identified. Fall Risk None identified. Assessment: 21:57 General: Appears in no apparent distress. as6 22:01 Pain: Complains of pain in headache. Neuro: Reports headache. as6 22:28 Reassessment: Patient appears in no apparent distress at this time. No changes from as6 previously documented assessment. Patient and/or family updated on plan of care and expected duration. Pain level reassessed. Patient states feeling better. 22:51 Reassessment: Patient appears in no apparent distress at this time. as6 Vital Signs: 20:20 BP 200 / 102; Pulse 99; Resp 20; Temp 97.5; Pulse Ox 100% on R/A; lp1 22:00 BP 178 / 112; Pulse 98; Resp 18 S; Pulse Ox 98% on R/A; as6 22:23 BP 142 / 79; rn 22:50 BP 113 / 65; Pulse 79; Resp 16 S; Pulse Ox 98% on R/A; as6 23:22 BP 111 / 70; Pulse 72; Resp 18; Pulse Ox 100% on R/A; tw5 Campbell Coma Score: 22:23 Eye Response: spontaneous(4). Verbal Response: oriented(5). Motor Response: obeys rn commands(6). Total: 15. ED Course: 20:18 Patient arrived in ED. ja2 20:18 Triage completed. lp1 20:24 Joao Julian MD is Attending Physician. rn 20:56 Initial lab(s) drawn, by me, sent to lab. lp1 20:58 Arm band placed on. lp1 21:08 XRAY Chest (1 view) In Process Unspecified. EDMS 21:21 Karsten Corrales, RN is Primary Nurse. as6 21:58 Placed in gown. Bed in low position. Call light in reach. Side rails up X2. Pulse ox as6 on. NIBP on. 22:28 Maintain EMS IV. Dressing intact. Good blood return noted. Site clean \T\ dry. Gauge \T\ as 6 site: 20 G LAC. 22:30 Primary Nurse role handed off by Karsten Corrales, RN tw5 22:30 Desiree Corcoran is Primary Nurse. tw5 23:22 No provider procedures requiring assistance completed. IV discontinued, intact, tw5 bleeding controlled, No redness/swelling at site. Pressure dressing applied. Administered Medications: 21:26 Drug: cloNIDine 0.1 mg Route: PO; as6 23:23 Follow up: Response: No adverse reaction; Blood pressure is lowered tw5 22:28 Drug: NS 0.9% 500 ml Route: IV; Rate: bolus; Site: left antecubital; as6 23:23 Follow up: IV Status: Completed infusion :28 Not Given (Hemodynamic Parameters): cloNIDine 0.1 mg PO once as6 Outcome: 22:24 Discharge ordered by MD. rn 23:13 Discharge ordered by . rn 23:22 Discharged to home ambulatory. 23:22 Condition: improved 23:22 Discharge instructions given to patient, Instructed on discharge instructions, follow up and referral plans. 23:23 Patient left the ED. Signatures: Dispatcher [employer] EDMS Joao Julian MD MD rn Pena, Laura, RN RN lp1 Jacquelyn Schmidt Tiffany tw5 Karsten Corrales RN RN as6 Corrections: (The following items were deleted from the chart) 20:59 20:59 Allergies: No Known Allergies; lp1 lp1
[2021-03-19 23:28] VITALS: TEMP 97.5
[2021-03-19 23:34] VITALS: BP 111/70; O2SAT 100
== END 2021-03-19 23:23 | disposition home or self-care (01) ==
LOC: ER 20:17
DX: I10 Essential (primary) hypertension (principal)
CPT/HCPCS: 36415; 71045; 80048; 83880; 84484; 85025; 85610; 93005; 96360; 99284; J7040

== ENCOUNTER 2022-09-10 14:46 | Emergency (ER) | payer OTHER, SELFPAY ==
--- OUTSIDE RECORDS SUMMARY | 2022-09-10 14:49 | XMS REPORT | Continuity of Care Document ---
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 Allergies, Adverse Reactions, Alerts This patient has no known allergies or adverse reactions. Medications This patient has no known medications. Procedures This patient has no known procedures. Encounters Start End Encounter Admission Attending Care Care Encounter Source Date/Time Date/Time Type Type Clinicians Facility Department ID 2022-10-11 2022-10-11 Outpatient NYDIA JAMES [id number] Nydia 10:30:00 10:30:00 BAYRON frank 2022-06-28 2022-06-28 Outpatient [facility] [id number] Ritesh 08:07:30 08:07:30 [id number] F Leonel 2022-06-14 2022-06-14 Outpatient [facility] [id number] Ritesh 09:33:03 09:33:03 [id number] F Leonel 2022-02-05 2022-02-05 Outpatient [facility] [id number] Ritesh 08:50:33 08:50:33 [id number] F Leonel Results Test Description Test Time Test Comments Results Result Comments Source TSH, THIRD GENERATION 2021-08-27 06:26:56 Test Item Value Reference Range Interpretation Comme nts TSH, THIRD GENERATION (test 2.360 UIU/ML 0.400-4.100 UNLESS OTHERWISE INDICATED, code = 2821) ALL TESTING PER [facility] [place]. [address] [place], [place] [address] [employer] BUTTER FILTER OPERATOR: Sofi JIMENEZQuinn Delmy [id number] [place]. [id number] HEMOGLOBIN [id number] 04:37:00 Test Item Value Reference Range Interpretation Comments HEMOGLOBIN A1c (test code = 64803) 5.9 % 4.2-5.6 H TSH, THIRD [id number] 06:10:52 Test Item Value Reference Range Interpretation Comments TSH, THIRD 1.150 UIU/ML 0.400-4.100 UNLESS OTHERWI SE GENERATION (test INDICATED, ALL TESTING code = 2821) PERFORMED [facility] PATHOLOGY [facility], [facility]. [address] [place] [id number] [facility] DIRECTOR: Sofi JIMENEZ NUMBER [id number] CAP ACCREDITATION N O. [id number]
[2022-09-10 16:15] LABS: Absolute Lymphocytes (CBC) 1.6 K/uL (0.7-4.9); Hematocrit 37.7 % (36.0-45.0); Lymphocytes % 18.5 % (15.3-44.8); MCV 85.4 fL (80-100); MPV 7.1 fL (7.6-11.3); RBC Red Blood Cell Count 4.41 M/uL (3.86-4.86)
[2022-09-10] MEDS ORDERED: NA CHLORIDE 0.9% 1,000 ML ONE (16:18)
--- NOTE | 2022-09-10 16:35 | RAD REPORT ---
EXAM DESCRIPTION: CT - Head Brain Wo Cont - 09/10/2022 4:25 pm CLINICAL HISTORY: Headache COMPARISON: 2020 TECHNIQUE: Computed axial tomography of the head was obtained. IV contrast was not requested. All CT scans are performed using dose optimization technique as appropriate and may include automated exposure control or mA/KV adjustment according to patient size. FINDINGS: An intracranial bleed is not seen The ventricles are normal in caliber No extra-axial fluid collection is noted. Empty sella turcica. No significant hypodensity within the brain noted Fluid within the sinuses/ mastoids is not seen. IMPRESSION: No acute intracranial abnormality is seen If patient's symptoms persist MRI of the brain would be recommended
[2022-09-10 16:41] LABS: Albumin 4.1 g/dL (3.4-5.0); Bilirubin Total 0.4 mg/dL (0.2-1.0); Potassium 3.6 mEq/L (3.5-5.1); Protein, Total 7.9 g/dL (6.4-8.2); Thyroid Stimulating Hormone 1.41 uIU/mL (0.358-3.740)
--- NOTE | 2022-09-10 17:37 | EDPHYS ---
Physician Documentation [facility] Name: Kristy Serrano Age: 82 yrs Sex: Female : 1940 Arrival Date: 09/10/2022 Time: 14:46 Bed 19 Private MD: ED Physician Paul Can HPI: 09/10 15:06 This 82 yrs old Female presents to ER via Ambulatory with complaints of High snw Blood Sugar, Headache. 15:06 The patient complains of pain to the forehead. The patient describes the headache as snw aching. Onset: The symptoms/episode began/occurred acutely, 1 week(s) ago, and became persistent. Severity of symptoms: At its worst the pain was moderate. Headache History: Denies prior headaches. It is unknown whether or not the patient has had similar symptoms in the past. The patient has been recently seen by a physician: [facility] today. Historical: - Allergies: 14:59 No Known Allergies; ml4 - Home Meds: 14:59 metformin 1,000 mg Oral tab 1 tab 1 tab in QAM and 1/2 tab QPM [Active]; ml4 - PMHx: 14:59 Diabetes - NIDDM; Hyperlipidemia; Hypertension; Thyroid problem; ml4 - PSHx: 14:59 Total abdominal hysterectomy; Cholecystectomy; ml4 - Immunization history:: Adult Immunizations. - Social history:: Smoking status: Patient denies any tobacco usage or history of. ROS: 15:05 Constitutional: Negative for fever, chills, and weight loss, Eyes: Negative for injury, snw pain, redness, and discharge, ENT: Negative for injury, pain, and discharge, Neck: Negative for injury, pain, and swelling, Cardiovascular: Negative for chest pain, palpitations, and edema, Respiratory: Negative for shortness of breath, cough, wheezing, and pleuritic chest pain, Abdomen/GI: Negative for abdominal pain, nausea, vomiting, diarrhea, and constipation, Back: Negative for injury and pain, : Negative for injury, bleeding, discharge, and swelling, MS/Extremity: Negative for injury and deformity, Skin: Negative for injury, rash, and discoloration, Psych: Negative for depression, anxiety, suicide ideation, homicidal ideation, and hallucinations. 15:05 Neuro: Positive for headache. Exam: 15:04 Constitutional: This is a well developed, well nourished patient who is awake, alert, snw and in no acute distress. Head/Face: Normocephalic, atraumatic. Eyes: Pupils equal round and reactive to light, extra-ocular motions intact. Lids and lashes normal. Conjunctiva and sclera are non-icteric and not injected. Cornea within normal limits. Periorbital areas with no swelling, redness, or edema. ENT: Nares patent. No nasal discharge, no septal abnormalities noted. Tympanic membranes are normal and external auditory canals are clear. Oropharynx with no redness, swelling, or masses, exudates, or evidence of obstruction, uvula midline. Mucous membranes moist. Neck: Trachea midline, no thyromegaly or masses palpated, and no cervical lymphadenopathy. Supple, full range of motion without nuchal rigidity, or vertebral point tenderness. No Meningismus. Chest/axilla: Normal chest wall appearance and motion. Nontender with no deformity. No lesions are appreciated. Cardiovascular: Tachycardic rate and rhythm with a normal S1 and S2. No gallops, murmurs, or rubs. Normal PMI, no JVD. No pulse deficits. Respiratory: Lungs have equal breath sounds bilaterally, clear to auscultation and percussion. No rales, rhonchi or wheezes noted. No increased work of breathing, no retractions or nasal flaring. Abdomen/GI: Soft, non-tender, with normal bowel sounds. No distension or tympany. No guarding or rebound. No evidence of tenderness throughout. Back: No spinal tenderness. No costovertebral tenderness. Full range of motion. Skin: Warm, dry with normal turgor. Normal color with no rashes, no lesions, and no evidence of cellulitis. MS/ Extremity: Pulses equal, no cyanosis. Neurovascular intact. Full, normal range of motion. Neuro: Awake and alert, GCS 15, oriented to person, place, time, and situation. Cranial nerves II-XII grossly intact. Motor strength 5/5 in all extremities. Sensory grossly intact. Cerebellar exam normal. Normal gait. Psych: Awake, alert, with orientation to person, place and time. Behavior, mood, and affect are within normal limits. Vital Signs: 14:58 BP 163 / 86; Pulse 119; Resp 18; Pulse Ox 99% on R/A; Pain 4/10; ml4 15:01 Temp 98.8(T); Weight 66 kg; ml4 17:08 BP 148 / 74; Pulse 85; Resp 18; Pulse Ox 99% on R/A; os 14:58 Pain Scale: Adult ml4 Homa Coma Score: 17:37 Eye Response: spontaneous(4). Motor Response: obeys commands(6). Verbal Response: snw oriented(5). Total: 15. MDM: 14:53 Patient medically screened. snw 17:37 Differential diagnosis: cerebral vascular accident, hypoglycemia, hyponatremia, snw intracerebral hemorrhage, neoplasm, trigeminal neuralgia, vasomotor headache. Data reviewed: vital signs, nurses notes, lab test result(s), radiologic studies. I considered the following discharge prescriptions or medication management in the emergency department Medications were administered in the Emergency Department. See MAR. Counseling: I had a detailed discussion with the patient and/or guardian regarding: the historical points, exam findings, and any diagnostic results supporting the discharge/admit diagnosis, the presence of at least one elevated blood pressure reading (>120/80) during this emergency department visit, lab results, radiology results, the need for outpatient follow up, to return to the emergency department if symptoms worsen or persist or if there are any questions or concerns that arise at home. Response to treatment: the patient's symptoms have mildly improved after treatment, the patient's symptoms have markedly improved after treatment. Special discussion: Based on the history and exam findings, there is no indication for further emergent testing or inpatient evaluation. I discussed with the patient/guardian the need to see the neurologist for further evaluation of the symptoms. I discussed with the patient/guardian the need to see the primary care provider for further evaluation of the symptoms. 09/10 15:04 Order name: CBC with Diff; Complete Time: 16:31 snw 09/10 15:04 Order name: CMP; Complete Time: 16:42 snw 09/10 15:04 Order name: Lipase; Complete Time: 16:42 snw 09/10 15:04 Order name: TSH; Complete Time: 16:42 snw 09/10 15:10 Order name: Glucose, Ancillary Testing; Complete Time: 15:10 EDMS 09/10 15:04 Order name: CT Head Brain wo Cont; Complete Time: 16:36 snw 09/10 15:06 Order name: EKG; Complete Time: 15:39 snw 09/10 15:04 Order name: IV Saline Lock snw 09/10 15:04 Order name: Labs collected and sent snw 09/10 15:06 Order name: EKG - Nurse/Tech; Complete Time: 15:15 snw Administered Medications: 16:36 Drug: NS 0.9% IV 500 ml Route: IV; Rate: bolus; Site: left antecubital; os 17:08 Follow up: Response: No adverse reaction os 17:08 Drug: NS 0.9% IV 250 ml Route: IV; Rate: bolus; Site: left antecubital; os Point of Care Testing: Blood Glucose: 14:58 Blood Glucose: 106 mg/dL; ml4 Ranges: Critical Glucose Levels:Adult <50 mg/dl or >400 mg/dl <40 mg/dl or >180 mg/dl Disposition Summary: 09/10/22 17:36 Discharge Ordered Location: Home snw Condition: Stable snw Diagnosis - Headache snw - Dehydration snw Followup: snw - With: Emergency Department - When: As needed - Reason: Worsening of condition Followup: snw - With: Private Physician - When: 2 - 3 days - Reason: Recheck today's complaints, Continuance of care, Re-evaluation by your physician Discharge Instructions: - Discharge Summary Sheet snw - Dehydration, Elderly snw - Tension Headache, Adult snw - Rehydration, Elderly snw Forms: - Medication Reconciliation Form snw - Thank You Letter snw - Antibiotic Education snw - Prescription Opioid Use snw Signatures: Dispatcher [employer] Marcelina Lester FNP-C BUSINESS SYSTEMS MANAGER-Csnw Jose Manuel Miles, RN RN os LUCINA ProIII, Albaro, RN RN ml4
--- NOTE | 2022-09-10 17:37 | ER ---
Nurse's Notes [facility] Name: Kristy Serrano Age: 82 yrs Sex: Female : 1940 Arrival Date: 09/10/2022 Time: 14:46 Bed 19 Private MD: Diagnosis: Headache;Dehydration Presentation: 09/10 14:55 Chief complaint: Patient states: hyperglycemia. Coronavirus screen: At this time, the ml4 client does not indicate any symptoms associated with coronavirus-19. Ebola Screen: No symptoms or risks identified at this time. Initial Sepsis Screen: Does the patient meet any 2 criteria? No. Patient's initial sepsis screen is negative. Does the patient have a suspected source of infection? No. Patient's initial sepsis screen is negative. Risk Assessment: Do you want to hurt yourself or someone else? Patient reports no desire to harm self or others. Note MCBRIDE x 1 wk, MCBRIDE. Onset of symptoms was September 03, 2022. Care prior to arrival: None. Activity prior to arrival: None. 14:55 Method Of Arrival: Ambulatory ml4 14:55 Acuity: MAYKEL 3 ml4 Triage Assessment: 15:00 General: Appears in no apparent distress. comfortable, Behavior is calm, cooperative, ml4 appropriate for age. Pain: Complains of pain in face and scalp Pain does not radiate. Pain currently is 5 out of 10 on a pain scale. EENT: No deficits noted. No signs and/or symptoms were reported regarding the EENT system. Historical: - Allergies: 14:59 No Known Allergies; ml4 - Home Meds: 14:59 metformin 1,000 mg Oral tab 1 tab 1 tab in QAM and 1/2 tab QPM [Active]; ml4 - PMHx: 14:59 Diabetes - NIDDM; Hyperlipidemia; Hypertension; Thyroid problem; ml4 - PSHx: 14:59 Total abdominal hysterectomy; Cholecystectomy; ml4 - Immunization history:: Adult Immunizations. - Social history:: Smoking status: Patient denies any tobacco usage or history of. Screenin:09 [facility] ED Fall Risk Assessment (Adult) History of falling in the last 3 months, os including since admission No falls in past 3 months (0 pts) Confusion or Disorientation No (0 pts) Intoxicated or Sedated No (0 pts) Impaired Gait No (0 pts) Mobility Assist Device Used No (0 pt) Altered Elimination No (0 pt) Score/Fall Risk Level 0 - 2 = Low Risk. [facility] ED Fall Risk Assessment (Adult) Score/Fall Risk Level 0 - 2 = Low Risk Oriented to surroundings, Maintained a safe environment. Abuse screen: Denies threats or abuse. Nutritional screening: No deficits noted. Tuberculosis screening: No symptoms or risk factors identified. Assessment: 16:14 General: Appears in no apparent distress. Pain: Complains of pain in face Neuro: No os deficits noted. Cardiovascular: Heart rate 103. Rhythm is sinus tachycardia. Respiratory: No deficits noted. Vital Signs: 14:58 BP 163 / 86; Pulse 119; Resp 18; Pulse Ox 99% on R/A; Pain 4/10; ml4 15:01 Temp 98.8(T); Weight 66 kg; ml4 17:08 BP 148 / 74; Pulse 85; Resp 18; Pulse Ox 99% on R/A; os 14:58 Pain Scale: Adult ml4 Homa Coma Score: 17:37 Eye Response: spontaneous(4). Motor Response: obeys commands(6). Verbal Response: snw oriented(5). Total: 15. ED Course: 14:50 Patient arrived in ED. im 14:52 Marcelina Freeman [facility]NP-C [facility]. snw 14:53 Paul Can MD is Attending Physician. snw 14:58 Triage completed. ml4 15:01 Arm band placed on right wrist. ml4 15:12 Jose Manuel Miles, RN is Primary Nurse. os 15:15 EKG done, by ED staff, reviewed by Marcelina DEL VALLE. mm9 15:16 Patient has correct armband on for positive identification. Placed in gown. Bed in low mm9 position. Call light in reach. Side rails up X2. Adult w/ patient. Warm blanket given. Client placed on continuous cardiac and pulse oximetry monitoring. NIBP monitoring applied. farm management adviser on. Pulse ox on. NIBP on. 16:08 TSH Sent. os 16:08 CBC with Diff Sent. os 16:08 CMP Sent. os 16:08 Lipase Sent. os 16:27 CT Head Brain wo Cont In Process Unspecified. EDMS 16:36 CMP Sent. os 16:36 Lipase Sent. os 17:09 No provider procedures requiring assistance completed. os 18:12 IV discontinued. os Administered Medications: 16:36 Drug: NS 0.9% IV 500 ml Route: IV; Rate: bolus; Site: left antecubital; os 17:08 Follow up: Response: No adverse reaction os 17:08 Drug: NS 0.9% IV 250 ml Route: IV; Rate: bolus; Site: left antecubital; os Medication: 18:12 VIS not applicable for this client. os Point of Care Testing: Blood Glucose: 14:58 Blood Glucose: 106 mg/dL; ml4 Ranges: Outcome: 17:36 Discharge ordered by MD. eflix 18:12 Discharged to home ambulatory. os 18:12 Condition: improved 18:12 Discharge instructions given to patient, family, friend. 18:13 Patient left the ED. os Signatures: Dispatcher [employer] EDMS Marcelina Freeman, CRIME SCENE PHOTOGRAPHER-C CRIME SCENE PHOTOGRAPHER-Csnw Ally Holley mm9 Jose Manuel Miles RN RN os Marylou Howard, RNIII, LUCINA Irvin RN ml4
[2022-09-10 19:19] VITALS: O2SAT 99
[2022-09-10 19:20] VITALS: TEMP 98.8
[2022-09-10 19:21] VITALS: BP 148/74
--- NOTE | 2022-09-13 17:56 | EKG ---
Test Date: 2022-09-10 Test Time: 15:26:18 Genetics Physician: KENNY MEASUREMENT RESULTS: Intervals: Rate: 109 ID: [id number] QRSD: 82 QT: 340 QTc: 457 [place]: P: 47 ID: [id number] QRS: -47 T: 43 INTERPRETIVE STATEMENTS: Sinus tachycardia Left anterior fascicular block Cannot rule out Inferior infarct (masked by fascicular block?), age undetermined Cannot rule out Anterior infarct, age undetermined Abnormal ECG Compared to ECG 03/19/2021 20:30:16 Left anterior fascicular block now present Myocardial infarct finding now present Sinus rhythm no longer present Left-axis deviation no longer present ST (T wave) deviation no longer present Electronically Signed On 09-13-22 17:51:16 CDT by Gallo Herring
== END 2022-09-10 18:13 | disposition home or self-care (01) ==
LOC: ER 14:46
DX: R51.9 Headache, unspecified (principal); E86.0 Dehydration; E11.9 Type 2 diabetes mellitus without complications; I10 Essential (primary) hypertension
CPT/HCPCS: 85025; 36415; 82947; 84443; 83690; 80053; 70450; 96374; 99285; J7030; 93005

== ENCOUNTER 2023-03-25 22:08 | Emergency (ER) | payer OTHER ==
--- OUTSIDE RECORDS SUMMARY | 2023-03-25 22:13 | XMS REPORT | Continuity of Care Document ---
Author Name Unknown Address [address] [facility] [place] [address] [facility] thconnect Address [address] 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 Name Role Phone BAYRON JAMES Attending Clinician Unavailable BLANCA GUILLORY Attending Clinician Unavailable MARITA SCRANTON Attending Clinician Unavailelian e LAB90 Attending Clinician Unavailable Payers Payer Name Policy Type Policy Number Effective Date Expirati on Date Source [employer] MP [facility] [employer]: HMO WAXER FLOOR 94 ON STAND 9 [id number] 2022 00:00:00 Problems Condition Name Condition Details Condition Category Status Onset Date Resolution Date Last Treatment Date Treating Clinician Comments Source Empty sella turcica Empty sella turcica Disease Active 12-16 00:00: 00 Lidia herrera Chronic neck pain Chronic neck pain Disease Active 12-16 00:00: 00 Lidia Clark Externa sharon Overweight (BMI 25.0-29.9) Overweight (BMI 25.0-29.9) Disease Active 10-11 00:00: 00 Lidia Clark Externa sharon Hypertensi on Hypertensi on Disease Active 10-11 00:00: 00 Lidia Clark Externa sharon Hypothyroi dism (acquired) Hypothyroi dism (acquired) Disease Active 10-11 00:00: 00 Lidia herrera Primary insomnia Primary insomnia Disease Active 10-11 00:00: 00 Lidia herrera 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 Disease Active 10-11 00:00: 00 Lidia herrera Social History Social Habit Start Date Stop Date Quantity Comments Source Sexual orientation Byron kohli Nereida - External Gender identity Yadira lee Nereida - External Alcohol intake 2022-12-16 00:00:00 2022-12-16 00:00:00 Lifetime non-drinker (finding) Lidia Padron - External History of Social function 2022-10-11 00:00:00 2022-10-11 00:00:00 Lidia Padron - External Education 2022-10-11 00:00:00 2022-10-11 00:00:00 3 Lidia Padron - External Tobacco use and exposure 2022-09-01 00:00:00 2022-09-01 00:00:00 Smokeless tobacco non-user Lidia Padron - External Sex Assigned At 1940 00:00:00 1940 00:00:00 Lidia Padron - External Smoking Status Start Date Stop Date Source Never smoked tobacco Lidia Padron - External Medications Ordered Medication Name Filled Medication Name Start Date Stop Date Current Medication? Ordering Clinician Indication Dosage Frequency Signature (SIG) Comments Components Source Aspirin-Wallace taminophen- Caffeine 250-250-65 MG oral Tablet 12-16 15:00: 54 Yes 1{tbl} [id number] 3D Take 1 tablet by mouth every 8 hours as needed for headaches. Lidia herrera Aspirin-Wallace taminophen- Caffeine 250-250-65 MG oral Tablet 12-16 15:00: 54 Yes 1{tbl} Q.[id number] [id number] 3D Take 1 tablet by mouth every 8 hours as needed for headaches. Lidia herrera Metformin HCl 500 MG oral Tablet 12-16 00:00: 00 Yes [id number] 3 500mg Take 1 tablet (500 mg total) by mouth daily (with breakfast) . Lidia herrera Metformin HCl 500 MG oral Tablet 12-16 00:00: 00 Yes [id number] 3 500mg Take 1 tablet (500 mg total) by mouth daily (with breakfast) . Lidia herrera Topiramate 25 MG oral Tablet 10-14 00:00: 00 Yes [id number] 25mg Take 1 tablet (25 mg total) by mouth nightly Lidia herrera Topiramate 25 MG oral Tablet 10-14 00:00: 00 Yes [id number] 25mg Take 1 tablet (25 mg total) by mouth nightly Lidia herrera Metformin HCl 1000 MG oral Tablet 10-14 00:00: 00 12-16 00:00 :00 No [id number] 3 1000mg Take 1 tablet (1,000 mg total) by mouth daily (with breakfast) Lidia herrera Metformin HCl 1000 MG oral Tablet 10-14 00:00: 00 12-16 00:00 :00 No [id number] 3 1000mg Take 1 tablet (1,000 mg total) by mouth daily (with breakfast) Lidia herrera Metformin HCl 1000 MG oral Tablet 10-11 10:33: 41 10-11 00:00 :00 No 1000mg Take 1 tablet (1,000 mg total) by mouth in the morning and 1 tablet (1,000 mg total) in the evening. Take with meals. Lidia herrera Aspirin-Wallace taminophen- Caffeine 250-250-65 MG oral Tablet 10-11 10:27: 22 Yes 1{tbl} Q.[id number] 3D Take 1 tablet by mouth every 8 hours as needed for headaches Lidia herrera TRIMETHOPRI M-SULFAMETH OXAZOLE (BACTRIM DS) 800-160 MG oral Tablet 10-11 10:21: 36 10-11 00:00 :00 No 1{tbl} Take 1 tablet by mouth 2 times daily Lidia herrera Gemfibrozil 600 MG oral Tablet 10-11 10:21: 11 10-11 00:00 :00 No 600mg Take 1 tablet (600 mg total) by mouth in the morning and 1 tablet (600 mg total) in the evening. Take before meals. Lidia herrera Amlodipine Besylate (Norvasc) 5 MG oral Tablet 10-11 00:00: 00 Yes [id number] 5mg Take 1 tablet (5 mg total) by mouth daily Lidia herrera Levothyroxi ne Sodium 50 MCG oral Tablet 10-11 00:00: 00 Yes [id number] 50ug Take 1 tablet (50 mcg total) by mouth daily Lidia herrera Losartan Potassium (COZAAR) 50 MG oral Tablet 10-11 00:00: 00 Yes [id number] 50mg Take 1 tablet (50 mg total) by mouth 2 times daily Lidia herrera Atorvastati n Calcium (Lipitor) 20 MG oral Tablet 10-11 00:00: 00 Yes [id number] 3 20mg Take 1 tablet (20 mg total) by mouth nightly Lidia herrera Metformin HCl 1000 MG oral Tablet 10-11 00:00: 00 Yes [id number] 3 1000mg Take 1 tablet (1,000 mg total) by mouth in the morning and 1 tablet (1,000 mg total) in the evening. Take with meals. Lidia herrera Topiramate 25 MG oral Tablet 10-11 00:00: 00 Yes [id number] 25mg Take 1 tablet (25 mg total) by mouth nightly Lidia herrera Amlodipine Besylate (Norvasc) 5 MG oral Tablet 10-11 00:00: 00 Yes [id number] 5mg Take 1 tablet (5 mg total) by mouth daily Lidia herrera Levothyroxi ne Sodium 50 MCG oral Tablet 10-11 00:00: 00 Yes [id number] 50ug Take 1 tablet (50 mcg total) by mouth daily Lidia herrera Losartan Potassium (COZAAR) 50 MG oral Tablet 10-11 00:00: 00 Yes [id number] 50mg Take 1 tablet (50 mg total) by mouth 2 times daily Lidia herrera Atorvastati n Calcium (Lipitor) 20 MG oral Tablet 10-11 00:00: 00 Yes [id number] 3 20mg Take 1 tablet (20 mg total) by mouth nightly Lidia herrera Amlodipine Besylate (Norvasc) 5 MG oral Tablet 10-11 00:00: 00 Yes [id number] 5mg Take 1 tablet (5 mg total) by mouth daily Lidia herrera Levothyroxi ne Sodium 50 MCG oral Tablet 10-11 00:00: 00 Yes [id number] 50ug Take 1 tablet (50 mcg total) by mouth daily Lidia herrera Losartan Potassium (COZAAR) 50 MG oral Tablet 10-11 00:00: 00 Yes [id number] 50mg Take 1 tablet (50 mg total) by mouth 2 times daily Lidia herrera Atorvastati n Calcium (Lipitor) 20 MG oral Tablet 10-11 00:00: 00 Yes [id number] 3 20mg Take 1 tablet (20 mg total) by mouth nightly Lidia herrera Topiramate 25 MG oral Tablet 10-07 00:00: 00 10-11 00:00 :00 No Lidia herrera Vital Signs Vital Name Observation Time Observation Value Comments S ource Systolic blood pressure 2022-12-16 20:00:00 139 mm[Hg] Lidia rodriguez - External Diastolic blood pressure 2022-12-16 20:00:00 69 mm[Hg] Lidia rodriguez - External Heart rate 2022-12-16 20:00:00 90 /min Peyton Padron - External Body temperature 2022-12-16 20:00:00 36.61 Venus Lidia Padron - External Respiratory rate 2022-12-16 20:00:00 20 /min Lidia Padron - External Body height 2022-12-16 20:00:00 152.4 cm Yadira Padron - External Body weight 2022-12-16 20:00:00 68.947 kg Yadira ey Seybold - External BMI 2022-12-16 20:00:00 29.69 kg/m2 Yadira ey Seybold - External Oxygen saturation in Arterial blood by Pulse oximetry 2022-12-16 20:00:00 99 /min Lidia Mcdonougho ld - External Systolic blood pressure 2022-10-11 15:14:00 122 mm[Hg] Lidia Mcdonougho ld - External Diastolic blood pressure 2022-10-11 15:14:00 71 mm[Hg] Lidia Mcdonougho ld - External Heart rate 2022-10-11 15:14:00 96 /min Peyton aleman Seybold - External Body temperature 2022-10-11 15:14:00 36.83 Venus Lidia Garciaybold - External Respiratory rate 2022-10-11 15:14:00 20 /min Lidia Garciaybold - External Body height 2022-10-11 15:14:00 152.4 cm Yadira ey Seybold - External Body weight 2022-10-11 15:14:00 68.947 kg Yadira ey Seybold - External BMI 2022-10-11 15:14:00 29.69 kg/m2 Yadira ey Seybold - External Oxygen saturation in Arterial blood by Pulse oximetry 2022-10-11 15:14:00 95 /min Lidia Leslie ld - External Encounters Start Date/Time End Date/Time Encounter Type Admission Type Attending [facility] Care Department Encounter ID Source 2023-03-24 09:13:51 2023-03-24 09:13:51 Outpatient SFA SFA 1228 Ritesh [place] 2023-03-24 00:00:00 2023-03-24 00:00:00 Outpatient BAYRON JAMES [id number] Lidia Padron 2023-03-23 16:48:27 2023-03-23 16:48:27 Outpatient SFA SFA 1227 Ritesh Delarosa 2023-02-09 14:32:07 2023-02-09 14:32:07 Outpatient SFA SFA [id number] Ritesh Delarosa 2023-02-02 08:48:15 2023-02-02 08:48:15 Outpatient SFA SFA 1108 Ritesh Delarosa 2023-01-27 13:20:00 2023-01-27 13:20:00 Outpatient GUILLORY, BLANCA [facility]AFFORD [facility] [id number] [facility]23-[facility]-14 00:00:00 2023-01-14 00:00:00 Outpatient PREZAS, BAYRON LIDIA STAFFORD [id number] [facility] 2022-12-27 00:00:00 2022-12-27 00:00:00 Outpatient PREZAS, BAYRON LIDIA STAFFORD [id number] [facility] 2022-12-23 00:00:00 2022-12-23 00:00:00 Outpatient PREZAS, BAYRON LIDIA STAFFORD [id number] [facility] 2022-12-16 15:00:00 2022-12-16 15:00:00 Outpatient PREZAS, BAYRONNATHANIEL STAFFORD [id number] [facility] 2022-11-24 16:00:00 2022-11-24 16:00:00 Outpatient MARITAARCHANA LIDIA STAFFORD [id number] [facility] 2022-11-24 00:00:00 2022-11-24 00:00:00 Outpatient PREZAS, BAYRON LIDIA STAFFORD [id number] [facility] 2022-11-24 00:00:00 2022-11-24 00:00:00 Outpatient PREZAS, BAYRON STAFFORD [id number] [facility] 2022-11-18 14:15:00 2022-11-18 14:15:00 Outpatient PREZAS, BAYRON LIDIA STAFFORD [id number] [facility] 2022-10-14 00:00:00 2022-10-14 00:00:00 Outpatient PREZAS, BAYRON STAFFORD [id number] [facility] 2022-10-12 00:00:00 2022-10-12 00:00:00 Outpatient PREZAS, BAYRON STAFFORD [id number] [facility] 2022-10-12 00:00:00 2022-10-12 00:00:00 Outpatient PREZAS, BAYRON STAFFORD [id number] Lidia Padron 2022-10-11 11:30:00 2022-10-11 11:30:00 Outpatient LAB90 LIDIA STAFFORD [id number] Lidia Padron 2022-10-11 10:30:00 2022-10-11 10:30:00 Outpatient BAYRON JAMES [id number] Lidia Padron 2022-10-07 14:15:34 2022-10-07 14:15:[address] [facility] [id number] Ritesh Delarosa 2022-10-01 15:07:13 2022-10-01 15:07:[address] [facility] [id number] Ritesh Delarosa 2022-06-28 08:07:30 2022-06-28 08:07:30 Outpatient [facility] [id number] Ritesh Delarosa 2022-06-14 09:33:03 2022-06-14 09:33:03 Outpatient [facility] [id number] Ritesh Delarosa 2022-02-05 08:50:33 2022-02-05 08:50:33 Outpatient [facility] [id number] Ritesh Delarosa Results Test Description Test Time Test Comments Results Result Co mments Source HEMOGLOBIN [id number] 03:08:39* Test Item Value Reference Range Interpretation Comme [facility] HEMOGLOBIN A1c (test code = 00869) 6.3 % 4.2-5.6 H [employer] GUIDELINES FOR HGB A1C: PREDIABETES/INCREASED RISK . . . . . . . 5.7-6.4% DIAGNOSIS OF DIABETES . . . . . . . . . >=6.5% WITH CONFIRMATION OR APPROPRIATE SYMPTOMS NOTE: ASSAY MAY BE AFFECTED BY HEMOGLOBINOPATHIES (SICKLE CELL ANEMIA, S-C DISEASE, OTHERS) OR ARTIFICIALLY LOWERED BY DECREASED RED CELL SURVIVAL (HEMOLYTIC ANEMIAS, BLOOD LOSS, ETC.). CONSIDER ALTERNATE TESTING OR LABORATORY CONSULTATION. SEDIMENTATION [id number] 10:40:48* Test Item Value Reference Range Interpretation Comme [facility] SEDIMENTATION RATE (test cod e = 1017) 2 MM/HOUR 0-20 TSH, THIRD [id number] 05:47:40* Test Item Value Reference Range Interpretation Comme [facility] TSH, THIRD GENERATION (test code = 2821) 0.840 UIU/ML 0.400-4.100 UNLESS OTHERWISE INDICATED, ALL TESTING PERFORMED AT [facility] [address] [facility] [place] [address] LOGISTICS LEAD: ABIMBOLA VILLALBA M.D. [place] NUMBER [id number] [place]. [id number] CCP [id number] 05:22:12* Test Item Value Reference Range Interpretation Comme nts CCP IgG (test code = 00894) <0.5 U/ML <3.0 INTERPRETIVE INFORMATION INTERPRETATION RESULT NEGATIVE <3.0 U/ML POSITIVE >=3.0 U/ML LIPID [id number] 05:00:48* Test Item Value Reference Range Interpretation Comme nts CHOLESTEROL (test code = 2210) 142 MG/DL <200 TRIGLYCERIDES (test code = 2232) 59 MG/DL <150 HDL CHOLESTEROL (test code = 2220) 49 MG/DL >39 CALC LDL CHOL (test code = 2237) 79 MG/DL <100 NOTE: CALCULATED LDL IS BASED ON MADDY-ARIZA METHOD WHICHINCLUDES ADJUSTABLE TRIGLYCERIDE:VLDL CHOLESTEROL RATIO.THIS FACTOR VARIES BY MEASURED TRIGLYCERIDE AND NON-HDLCHOLESTEROL CONCENTRATIONS WITH INCREASED CALCULATED LDL SEENIN HIGHER TRIGLYCERIDE OR LOWER NON-HDL SPECIMENS. FOR MOREINFORMATION, SEE CLIENT ANNOUNCEMENT AT [email or web address] RISK RATIO LDL/HDL (test code = 2238) 1.61 RATIO <3.22 COMPREHENSIVE METABOLIC [id number] 05:00:48* Test Item Value Reference Range Interpretation Comme nts GLUCOSE (test code = 2217) 89 MG/DL 70-99 BUN (test code = 2208) 17 MG/DL 8-23 CREATININE (test code = 2214) 1.17 MG/DL 0.60-1.30 eGFR (2020 CKD-EPI) (test code = 33822) 47 ML/MIN/1.73 >60 L The NKF-ASN Taskforce recommends use of Cystatin C to confirm eGFR inadults at risk for CKD. [facility] offers eGFR with Cystatin C-Creatinineusing the 2020 CKD-EPI eGFR_creat-cystat equation (order code 3057) toincrease the accuracy of estimated GFR. For more information, contactyour reconciliation accountant or see announcement [email or web address] CALC BUN/CREAT (test code = 2234) 15 RATIO 6-28 SODIUM (test code = 2230) 143 MEQ/L 133-146 POTASSIUM (test code = 2227) 4.1 MEQ/L 3.5-5.4 CHLORIDE (test code = 2214) 106 MEQ/L 95-107 CARBON DIOXIDE (test code = 2205) 26 MEQ/L 19-31 CALCIUM (test code = 2208) 9.1 MG/DL 8.5-10.5 PROTEIN, TOTAL (test code = 2228) 6.2 G/DL 6.1-8.3 ALBUMIN (test code = 2200) 4.2 G/DL 3.5-5.2 CALC GLOBULIN (test code = 2239) 2.0 G/DL 1.9-3.7 CALC A/G RATIO (test code = 2233) 2.1 RATIO 1.0-2.6 BILIRUBIN, TOTAL (test code = 2206) 0.7 MG/DL <=1.2 ALKALINE PHOSPHATASE (test code = 2203) 70 U/L 40-142 AST (test code = 2217) 19 U/L 9-40 ALT (test code = 2218) 21 U/L 5-40 URIC [id number] 05:00:48* Test Item Value Reference Range Interpretation Comme nts URIC ACID (test code = 2232) 5.2 MG/DL 2.7-6.1 RHEUMATOID FACTOR, [id number] 04:36:38* Test Item Value Reference Range Interpretation Comme nts RHEUMATOID FACTOR, QUANT (te st code = 3502) <10 IU/ML <14 NOTE:2022-10-09 06:00:40* Test Item Value Reference Range Interpretation Comme nts NOTE: (test code = 998) (NOTE) IN ACCORDANCE WI FEDERAL GUIDELINES REQUIRING ALL VERBAL REQUESTS FOR LABORATORY TESTS TO BE ACCOMPANIED BY WRITTEN AUTHORIZATION WITHIN 30 DAYS OF THIS REQUEST, PLEASE SIGN BELOW AND RETURN A COPY OF THIS REPORT BY FAX TO THE LABORATORY SCANNING DEPARTMENT AT [phone]. PHYSICIAN'S SIGNATURE DATE UNLESS OTHERWISE INDICATED, ALL TESTING PERFORMED AT [facility] [address] [place] [address] LOGISTICS LEAD: ABIMBOLA VILLALBA M.D. [place] NUMBER [id number] [place]. [id number] HEMOGLOBIN [id number] 21:41:04* Test Item Value Reference Range Interpretation Comme nts HEMOGLOBIN A1c (test code = 72314) 5.9 % 4.2-5.6 H [employer] GUIDELINES FOR HGB A1C: PREDIABETES/INCREASED RISK . . . . . . . 5.7-6.4% DIAGNOSIS OF DIABETES . . . . . . . . . >=6.5% WITH CONFIRMATION OR APPROPRIATE SYMPTOMS NOTE: ASSAY MAY BE AFFECTED BY HEMOGLOBINOPATHIES (SICKLE CELL ANEMIA, S-C DISEASE, OTHERS) OR ARTIFICIALLY LOWERED BY DECREASED RED CELL SURVIVAL (HEMOLYTIC ANEMIAS, BLOOD LOSS, ETC.). CONSIDER ALTERNATE TESTING OR LABORATORY CONSULTATION. COMPREHENSIVE METABOLIC [id number] 04:00:40* Test Item Value Reference Range Interpretation Comme nts GLUCOSE (test code = 7) 89 MG/DL 70-99 BUN (test code = 2208) 13 MG/DL 8-23 CREATININE (test code = 2214) 0.63 MG/DL 0.60-1.30 eGFR (2020 CKD-EPI) (test code = 02556) 90 ML/MIN/1.73 >60 CALC BUN/CREAT (test code = 2235) 21 RATIO 6-28 SODIUM (test code = 2231) 140 MEQ/L 133-146 POTASSIUM (test code = 2228) 3.9 MEQ/L 3.5-5.4 CHLORIDE (test code = 2215) 103 MEQ/L 95-107 CARBON DIOXIDE (test code = 2206) 23 MEQ/L 19-31 CALCIUM (test code = 2209) 9.5 MG/DL 8.5-10.5 PROTEIN, TOTAL (test code = 2229) 7.2 G/DL 6.1-8.3 ALBUMIN (test code = 2201) 4.7 G/DL 3.5-5.2 CALC GLOBULIN (test code = 2240) 2.5 G/DL 1.9-3.7 CALC A/G RATIO (test code = 2234) 1.9 RATIO 1.0-2.6 BILIRUBIN, TOTAL (test code = 2206) 0.2 MG/DL See_Comment [Automated me ssage] The system which generated this result transmitted reference range: <=1.2. The reference range was not used to interpret this result as normal/abnormal. ALKALINE PHOSPHATASE (test code = 2204) 75 U/L 40-142 AST (test code = 2218) 17 U/L 9-40 ALT (test code = 2219) 13 U/L 5-40 UNLESS OTHERWISE INDICATED, ALL TESTING PERFORMED AT [facility] [address] [place] [address] LOGISTICS LEAD: ABIMBOLA VILLALBA M.D. CLIA NUMBER [id number] [place]. [id number] CBC W/AUTO DIFF WITH [id number] 03:26:23* Test Item Value Reference Range Interpretation Comme nts WBC (test code = 1001) 9.3 K/UL 3.5-11.0 RBC (test code = 1002) 4.10 M/UL 3.80-5.40 HEMOGLOBIN (test code = 1003) 11.8 G/DL 11.5-15.5 HEMATOCRIT (test code = 1004) 34.8 % 34.0-45.0 MCV (test code = 1005) 84.9 fL 80.0-99.0 MCH (test code = 1006) 28.8 PG 25.0-33.0 MCHC (test code = 1007) 33.9 G/DL 31.0-36.0 RDW (test code = 1038) 14.3 % 11.5-15.0 NEUTROPHILS (test code = 1008) 65.4 % LYMPHOCYTES (test code = 1010) 22.8 % MONOCYTES (test code = 1011) 8.4 % EOSINOPHILS (test code = 1012) 2.4 % BASOPHILS (test code = 1013) 0.6 % IMMATURE GRANULOCYTES (test code = 1036) 0.4 % NUCLEATED RBCS (test code = 1065) 0.0 /100 WBC'S See_Comment [Automated messa ge] The system which generated this result transmitted reference range: 0.0. The reference range was not used to interpret this result as normal/abnormal. PLATELET COUNT (test code = 1015) 243 K/UL 130-400 ABSOLUTE NEUTROPHILS (test code = 1066) 6.11 K/UL 1.50-7.50 ABSOLUTE LYMPHOCYTES (test code = 1067) 2.13 K/UL 1.00-4.00 ABSOLUTE MONOCYTES (test code = 1068) 0.78 K/UL 0.20-1.00 ABSOLUTE EOSINOPHILS (test code = 1040) 0.22 K/UL 0.00-0.50 ABSOLUTE BASOPHILS (test code = 1069) 0.06 K/UL 0.00-0.20 ABS IMMATURE GRANULOCYTES (test code = 1020) 0.04 K/UL 0.00-0.10 ABS NUCLEATED RBCS (test code = 70320) 0.00 K/UL 0.00-0.11 TSH, THIRD [id number] 06:26:56* Test Item Value Reference Range Interpretation Comme nts TSH, THIRD GENERATION (test code = 2821) 2.360 UIU/ML 0.400-4.100 UNLESS OTHERWISE INDICATED, ALL TESTING PERFORMED [facility] [address] [place] [address] LOGISTICS LEAD: MYA NUNEZ M.D. CLIA NUMBER [id number] [place] [id number] HEMOGLOBIN [id number] 04:37:00* Test Item Value Reference Range Interpretation Comme nts HEMOGLOBIN A1c (test code = 61832) 5.9 % 4.2-5.6 H TSH, THIRD [id number] 06:10:52* Test Item Value Reference Range Interpretation Comme nts TSH, THIRD GENERATION (test code = 2821) 1.150 UIU/ML 0.400-4.100 UNLESS OTHERWISE INDICATED, ALL TESTING PERFORMED [facility] [address] [place] [address] LOGISTICS LEAD: MYA NUNEZ M.D. CLIA NUMBER [id number] [place]. [id number]
[2023-03-26 00:06] LABS: Specific Gravity 1.007 (1.005-1.030); Urine Bilirubin NEGATIVE (Negative); Urine Blood Negative (Negative); Urine Clarity Clear (Clear); Urine Color Colorless (Yellow); Urine Glucose NEGATIVE (Negative); Urine Protein NEGATIVE (Negative); Urine Urobilinogen Normal (Normal)
[2023-03-26 00:07] LABS: Absolute Lymphocytes (CBC) 1.7 K/uL (0.7-4.9); Lymphocytes % 26.2 % (15.3-44.8); MCV 83.5 fL (80-100); MPV 7.3 fL (7.6-11.3); Platelets 249 thou/uL (152-406); RBC Red Blood Cell Count 4.55 M/uL (3.86-4.86)
[2023-03-26] MEDS ORDERED: NA CHLORIDE 0.9% 1,000 ML ONE (00:08)
[2023-03-26 00:14] LABS: Protime INR 1.1
[2023-03-26 00:57] LABS: Albumin 4.2 g/dL (3.4-5.0); Bilirubin Direct 0.1 mg/dL (0-0.2); Bilirubin Indirect, Calculated 0.6 mg/dL (0.2-0.8); Bilirubin Total 0.7 mg/dL (0.2-1.0); Potassium 3.5 mEq/L (3.5-5.1); Protein, Total 8.6 g/dL (6.4-8.2); Troponin High Sensitivity 8.7 pg/mL (<58.9)
[2023-03-26 00:58] LABS: Magnesium 1.6 mg/dL (1.6-2.4)
[2023-03-26] MEDS ORDERED: ONDANSETRON 4 MG/2 ML VIAL ONE (03:06)
[2023-03-26] MEDS ORDERED: dexAMETHasone 10 MG/ML VIAL ONE (03:07)
[2023-03-26] MEDS ORDERED: KETOROLAC 30 MG/ML INJ ONE (03:07)
[2023-03-26] MEDS ORDERED: FENTANYL CITR 100 MCG/2 ML ONE (03:07)
--- NOTE | 2023-03-26 04:34 | ER ---
Nurse's Notes [facility] Name: Kristy Serrano Age: 82 yrs Sex: Female : 1940 Arrival Date: 03/25/2023 Time: 22:08 Bed 12 Private MD: Diagnosis: Strain of muscle, fascia and tendon at neck level, initial encounter;Unspecified symptoms and signs involving the musculoskeletal system;Other specified diseases of upper respiratory tract Presentation: 03/25 22:41 Chief complaint: Patient states: MCBRIDE for 3 days that Tylenol helps decrease, left neck km8 pain for 3 months, and 15 days of left lateral chest/abd pain; denies fever, n/v/d. Coronavirus screen: Client denies travel out of the [place] in the last 14 days. Ebola Screen: No symptoms or risks identified at this time. Initial Sepsis Screen: Does the patient meet any 2 criteria? HR > 90 bpm. No. Patient's initial sepsis screen is negative. Does the patient have a suspected source of infection? No. Patient's initial sepsis screen is negative. Risk Assessment: Do you want to hurt yourself or someone else? Patient reports no desire to harm self or others. Onset of symptoms is unknown. 22:41 Method Of Arrival: Ambulatory km8 22:41 Acuity: MAYKEL 3 km8 Triage Assessment: 22:44 Headache History: The patient has had previous headaches and this one is similar to km8 previous episodes. General: Appears in no apparent distress. uncomfortable, Behavior is cooperative, appropriate for age. Pain: Complains of pain in head, left side of neck, and left lateral chest and lleft lateral ABD Pain currently is 10 out of 10 on a pain scale. Pain began suddenly, Also complains of no other associated symptoms. EENT: No signs and/or symptoms were reported regarding the EENT system. Neuro: Level of Consciousness is awake, alert, obeys commands, Oriented to person, place, time, situation, Reports headache. Cardiovascular: Denies chest pain, shortness of breath, Capillary refill < 3 seconds Patient's skin is warm and dry. Respiratory: Airway is patent Respiratory effort is even, unlabored, Respiratory pattern is regular, symmetrical. GI: Reports left lateral ABD pain Patient currently denies diarrhea, nausea, vomiting. : No signs and/or symptoms were reported regarding the genitourinary system. Derm: No signs and/or symptoms reported regarding the dermatologic system. Skin is intact, is healthy with good turgor, Skin is dry, Skin is pink, warm \T\ dry. normal, Skin temperature is warm. Musculoskeletal: No signs and/or symptoms reported regarding the musculoskeletal system. Circulation, motion, and sensation intact. Range of motion: intact in all extremities. Historical: - Allergies: :44 No Known Allergies; - Home Meds: 22:44 metformin 1 Oral tab 1 tab 1 tab in QAM and 1/2 tab QPM [Active]; - PMHx: 22:44 Diabetes - NIDDM; Hyperlipidemia; Hypertension; Thyroid problem; - PSHx: :44 Cholecystectomy; Total abdominal hysterectomy; - Immunization history:: Client reports receiving the 2nd dose of the Covid vaccine, Flu vaccine is not up to date. - Social history:: Smoking status: Patient denies any tobacco usage or history of. Patient/guardian denies using alcohol, street drugs. - Family history:: not pertinent. Screenin/30 00:00 [facility] ED Fall Risk Assessment (Adult) History of falling in the last 3 months, pf1 including since admission No falls in past 3 months (0 pts) Confusion or Disorientation No (0 pts) Intoxicated or Sedated No (0 pts) Impaired Gait No (0 pts) Mobility Assist Device Used No (0 pt) Altered Elimination No (0 pt) Score/Fall Risk Level 0 - 2 = Low Risk Oriented to surroundings, Maintained a safe environment, Educated pt \T\ family on fall prevention, incl call for assistance when getting out of bed, Assessed \T\ reinforced patient's understanding of fall precautions, Provided non-skid footwear, Hourly rounding (assess needs \T\ fall precautionary measures) done, Used ambulatory aids as needed (educated on \T\ assisted with), Used gait belt as appropriate. Abuse screen: Denies threats or abuse. Nutritional screening: No deficits noted. Tuberculosis screening: No symptoms or risk factors identified. Assessment: 00:00 General: Appears in no apparent distress. uncomfortable, well groomed, well developed, pf1 Behavior is calm, cooperative, appropriate for age, quiet. 00:00 Pain: Complains of pain in headache for 3 days, left shoulder and left neck pain of 3 pf1 months aand left side upper and lower adbominal pain,onset 15 days. Neuro: Level of Consciousness is awake, alert, obeys commands, Oriented to person, place, time, situation, Reports headache. Cardiovascular: No deficits noted. Capillary refill < 3 seconds Patient's skin is warm and dry. Respiratory: No deficits noted. Airway is patent Respiratory effort is even, unlabored, Respiratory pattern is regular, symmetrical. GI: Abdomen is round non-distended, Reports lower abdominal pain, upper abdominal pain. : No deficits noted. No signs and/or symptoms were reported regarding the genitourinary system. EENT: No deficits noted. No signs and/or symptoms were reported regarding the EENT system. Derm: No deficits noted. No signs and/or symptoms reported regarding the dermatologic system. Musculoskeletal: Reports pain in left shoudler. 01:00 Reassessment: Patient appears in no apparent distress at this time. Patient and/or pf1 family updated on plan of care and expected duration. Pain level reassessed. Patient is alert, oriented x 3, equal unlabored respirations, skin warm/dry/pink. 02:00 Reassessment: Patient appears in no apparent distress at this time. Patient and/or pf1 family updated on plan of care and expected duration. Pain level reassessed. Patient is alert, oriented x 3, equal unlabored respirations, skin warm/dry/pink. 03:00 Reassessment: Patient appears in no apparent distress at this time. Patient and/or pf1 family updated on plan of care and expected duration. Pain level reassessed. Patient is alert, oriented x 3, equal unlabored respirations, skin warm/dry/pink. Patient states feeling better. Patient states symptoms have improved. 04:00 Reassessment: Patient appears in no apparent distress at this time. Patient and/or pf1 family updated on plan of care and expected duration. Pain level reassessed. Patient is alert, oriented x 3, equal unlabored respirations, skin warm/dry/pink. Patient states feeling better. Patient states symptoms have improved. 05:00 Reassessment: Patient appears in no apparent distress at this time. Patient and/or pf1 family updated on plan of care and expected duration. Pain level reassessed. Patient is alert, oriented x 3, equal unlabored respirations, skin warm/dry/pink. Patient states feeling better. Patient states symptoms have improved. Vital Signs: 03/25 22:41 BP 176 / 98; Pulse 105; Resp 18; Temp 98.3(IR); Pulse Ox 97% on R/A; Weight 72.57 kg; km8 Height 5 ft. 1 in. (R); Pain 10/10; 03/26 00:00 BP 138 / 68; Pulse 88; Resp 16; Pulse Ox 98% on R/A; pf1 01:00 BP 130 / 72; Pulse 82; Resp 16; Pulse Ox 97% on R/A; pf1 02:00 BP 125 / 69; Pulse 80; Resp 16; Pulse Ox 98% on R/A; pf1 03:00 BP 151 / 81; Pulse 72; Resp 16; Pulse Ox 98% on R/A; pf1 04:00 BP 150 / 76; Pulse 89; Resp 16; Pulse Ox 100% ; pf1 05:00 BP 131 / 78; Pulse 70; Resp 16; Pulse Ox 99% on R/A; Pain 2/10; pf1 03/25 22:41 Body Mass Index 30.23 (72.57 kg, 154.94 cm) [facility] 03/25 22:41 Pain Scale: Adult km8 05:00 Pain Scale: Adult pf1 Homa Coma Score: 02:23 Eye Response: spontaneous(4). Motor Response: obeys commands(6). Verbal Response: elsa oriented(5). Total: 15. 02:23 Eye Response: spontaneous(4). Motor Response: obeys commands(6). Verbal Response: elsa oriented(5). Total: 15. ED Course: 03/25 22:11 Patient arrived in ED. jj6 22:44 Triage completed. km8 22:44 Arm band placed on right wrist. km8 22:49 Paul Can MD is Attending Physician. [facility] 22:57 Radiology exam delayed due to lab results not completed at this time. (BUN/Creatinine) eh4 IV insertion attempt and/or patient not having appropriate IV at this time. 23:22 XRAY Chest (1 view) In Process Unspecified. EDMS 23:47 Patient has correct armband on for positive identification. Placed in gown. Bed in low pf1 position. Call light in reach. Side rails up X2. 03/26 00:00 No provider procedures requiring assistance completed. pf1 00:05 Urinalysis w/ reflexes Sent. cg 00:06 Basic Metabolic Panel Sent. cg 00:06 CBC with Diff Sent. cg 00:06 LFT's Sent. cg 00:06 Magnesium Sent. cg 00:06 NT PRO-BNP Sent. cg 00:06 PT-INR Sent. cg 00:06 Troponin HS Sent. cg 01:40 CT Traumagram (Head C Spine CAP W Con) In Process Unspecified. EDMS 02:53 Extremity Nonvascular Complete In Process Unspecified. EDMS 04:34 Naif Andersen MD is Referral Physician. elsa 04:34 Aviva Westfall MD is Referral Physician. elsa 05:37 IV discontinued, intact, bleeding controlled, No redness/swelling at site. Pressure cg dressing applied. 05:42 Provided Education on: prescriptions . pf1 Administered Medications: 00:12 Drug: NS 0.9% IV 1000 ml IV at 125 ml/hr continuous Route: IV; Rate: 125 ml/hr; Site: cg right antecubital; 05:40 Follow up: Response: No adverse reaction; IV Status: Completed infusion pf1 04:00 Drug: Ketorolac IVP 15 mg IVP once Route: IVP; Site: right antecubital; pf1 05:00 Follow up: Response: No adverse reaction; Marked relief of symptoms; Pain is decreased pf1 04:00 Drug: Decadron - Dexamethasone IVP 10 mg IVP once Route: IVP; Site: right antecubital; pf1 05:00 Follow up: Response: No adverse reaction pf1 04:00 Drug: fentaNYL (PF) IVP 25 mcg IVP once Route: IVP; Site: right antecubital; pf1 05:00 Follow up: Response: No adverse reaction; Marked relief of symptoms; Pain is decreased; pf1 RASS: Alert and Calm (0) 04:00 Drug: Ondansetron IVP 4 mg IVP once; over 2 minutes Route: IVP; Site: right antecubital;pf1 05:00 Follow up: Response: No adverse reaction pf1 05:10 Drug: Amoxicillin-Clavulanate PO 875 mg PO once Route: PO; cg 05:40 Follow up: Response: No adverse reaction pf1 05:10 Drug: Rocephin IV 1 grams IV at per protocol once; Given slow IV push per pharmacy cg instructions Route: IV; Rate: per protocol; Site: right antecubital; 05:40 Follow up: Response: No adverse reaction; IV Status: Completed infusion pf1 05:15 Drug: AZITHromycin PO 500 mg PO once Route: PO; cg 05:42 Follow up: Response: No adverse reaction pf1 Medication: 00:00 VIS not applicable for this client. pf1 Outcome: 04:34 Discharge ordered by MD. hunter 05:39 Discharged to home ambulatory, with family, 05:39 Condition: improved 05:41 Discharged to home ambulatory, pf1 05:41 Condition: improved 05:41 Discharge instructions given to patient, family, Instructed on discharge instructions, follow up and referral plans. Demonstrated understanding of instructions, follow-up care, medications, Prescriptions given X 5 05:42 Patient left the ED. pf1 Signatures: Dispatcher [employer] EDMS Paul Can MD MD cha Garcia, Cindy, RN RN Lori Turner [facility] [place] [address] Teresa Kurtz RN RN pf1 Miranda Mahmood RN RN km8
--- NOTE | 2023-03-26 04:35 | EDPHYS ---
Physician Documentation [facility] Name: Kristy Serrano Age: 82 yrs Sex: Female : 1940 Arrival Date: 03/25/2023 Time: 22:08 Bed 12 Private MD: ASHLEY Physician Paul Can HPI: 03/26 02:05 This 82 yrs old Female presents to ER via Ambulatory with complaints of elsa Headache, Neck and Upper Back Pain, Abdominal Pain. 02:05 The patient complains of pain to the left ear, left anabaptism and left jaw. The patient elsa describes the headache as aching. Onset: The symptoms/episode began/occurred 15 day(s) ago. Associated signs and symptoms: Pertinent positives: left neck , left abd pain 30 days. Severity of symptoms: At its worst the pain was mild, in the emergency department the pain is unchanged. Headache History: The patient has had previous headaches and this one is similar to previous episodes. The patient has not experienced similar symptoms in the past. Historical: - Allergies: 03/25 22:44 No Known Allergies; km8 - Home Meds: 22:44 metformin 1 Oral tab 1 tab 1 tab in QAM and 1/2 tab QPM [Active]; km8 - PMHx: 22:44 Diabetes - NIDDM; Hyperlipidemia; Hypertension; Thyroid problem; km8 - PSHx: 22:44 Cholecystectomy; Total abdominal hysterectomy; km8 - Immunization history:: Client reports receiving the 2nd dose of the Covid vaccine, Flu vaccine is not up to date. - Social history:: Smoking status: Patient denies any tobacco usage or history of. Patient/guardian denies using alcohol, street drugs. - Family history:: not pertinent. ROS: 03/26 02:05 Constitutional: Negative for fever, chills, and weight loss, Eyes: Negative for injury, elsa pain, redness, and discharge, ENT: Negative for injury, pain, and discharge, Cardiovascular: Negative for chest pain, palpitations, and edema, Respiratory: Negative for shortness of breath, cough, wheezing, and pleuritic chest pain, Abdomen/GI: Negative for abdominal pain, nausea, vomiting, diarrhea, and constipation, Back: Negative for injury and pain, : Negative for injury, bleeding, discharge, and swelling, MS/Extremity: Negative for injury and deformity, Skin: Negative for injury, rash, and discoloration, Neuro: Negative for headache, weakness, numbness, tingling, and seizure, Psych: Negative for depression, anxiety, suicide ideation, homicidal ideation, and hallucinations, Allergy/Immunology: Negative for hives, rash, and allergies, Endocrine: Negative for neck swelling, polydipsia, polyuria, polyphagia, and marked weight changes, Hematologic/Lymphatic: Negative for swollen nodes, abnormal bleeding, and unusual bruising, Neck: Positive for pain with movement, pain at rest, Exam: 02:05 Constitutional: This is a well developed, well nourished patient who is awake, alert, elsa and in no acute distress. Head/Face: Normocephalic, atraumatic. Eyes: Pupils equal round and reactive to light, extra-ocular motions intact. Lids and lashes normal. Conjunctiva and sclera are non-icteric and not injected. Cornea within normal limits. Periorbital areas with no swelling, redness, or edema. ENT: Nares patent. No nasal discharge, no septal abnormalities noted. Tympanic membranes are normal and external auditory canals are clear. Oropharynx with no redness, swelling, or masses, exudates, or evidence of obstruction, uvula midline. Mucous membranes moist. Chest/axilla: Normal chest wall appearance and motion. Nontender with no deformity. No lesions are appreciated. Cardiovascular: Regular rate and rhythm with a normal S1 and S2. No gallops, murmurs, or rubs. Normal PMI, no JVD. No pulse deficits. Respiratory: Lungs have equal breath sounds bilaterally, clear to auscultation and percussion. No rales, rhonchi or wheezes noted. No increased work of breathing, no retractions or nasal flaring. Abdomen/GI: Soft, non-tender, with normal bowel sounds. No distension or tympany. No guarding or rebound. No evidence of tenderness throughout. Back: No spinal tenderness. No costovertebral tenderness. Full range of motion. Female : Normal external genitalia. Skin: Warm, dry with normal turgor. Normal color with no rashes, no lesions, and no evidence of cellulitis. MS/ Extremity: Pulses equal, no cyanosis. Neurovascular intact. Full, normal range of motion. Neuro: Awake and alert, GCS 15, oriented to person, place, time, and situation. Cranial nerves II-XII grossly intact. Motor strength 5/5 in all extremities. Sensory grossly intact. Cerebellar exam normal. Normal gait. Psych: Awake, alert, with orientation to person, place and time. Behavior, mood, and affect are within normal limits. 02:05 Neck: External neck: is normal, no acute changes, C-spine: appears grossly normal, Thyroid: appears normal, no acute changes, Trachea: is midline with no obvious abnormalities, no acute changes, ROM/movement: no acute changes, Lymph nodes: no appreciated lymphadenopathy, 02:37 ECG was reviewed by the Attending Physician. [facility] Vital Signs: 03/25 22:41 BP 176 / 98; Pulse 105; Resp 18; Temp 98.3(IR); Pulse Ox 97% on R/A; Weight 72.57 kg; km8 Height 5 ft. 1 in. (R); Pain 10/10; 03/26 00:00 BP 138 / 68; Pulse 88; Resp 16; Pulse Ox 98% on R/A; pf1 01:00 BP 130 / 72; Pulse 82; Resp 16; Pulse Ox 97% on R/A; pf1 02:00 BP 125 / 69; Pulse 80; Resp 16; Pulse Ox 98% on R/A; pf1 03:00 BP 151 / 81; Pulse 72; Resp 16; Pulse Ox 98% on R/A; pf1 04:00 BP 150 / 76; Pulse 89; Resp 16; Pulse Ox 100% ; pf1 05:00 BP 131 / 78; Pulse 70; Resp 16; Pulse Ox 99% on R/A; Pain 2/10; pf1 03/25 22:41 Body Mass Index 30.23 (72.57 kg, 154.94 cm) [facility] 03/25 22:41 Pain Scale: Adult [facility] 05:00 Pain Scale: Adult pf1 Homa Coma Score: 02:23 Eye Response: spontaneous(4). Motor Response: obeys commands(6). Verbal Response: elsa oriented(5). Total: 15. 02:23 Eye Response: spontaneous(4). Motor Response: obeys commands(6). Verbal Response: elsa oriented(5). Total: 15. MDM: 03/25 22:50 Patient medically screened. [facility] 03/26 02:23 Differential diagnosis: hypertensive headache, migraine, temporal arteritis, tension elsa headache. Data reviewed: vital signs, nurses notes, lab test result(s), EKG, radiologic studies, CT scan, doppler, plain films. Consideration of Admission/Observation Escalation of care including admission/observation considered. I considered the following discharge prescriptions or medication management in the emergency department Medications were administered in the Emergency Department. See MAR. Independent interpretation of the following test(s) in the Emergency Department EKG: See my EKG interpretation above. Test considered but Not performed: MRI: no mri c spine. Historians other than the Patient: Daughter/Son: son well informed. Care significantly affected by the following chronic conditions: Diabetes, Hypertension, hyperlipids, htn, thyroid problem. 03/25 22:52 Order name: Basic Metabolic Panel; Complete Time: : [facility] 03/25 22:52 Order name: CBC with Diff; Complete Time: : [facility] 03/25 22:52 Order name: LFT's; Complete Time: : [facility] 03/25 22:52 Order name: Magnesium; Complete Time: : [facility] 03/25 22:52 Order name: NT PRO-BNP; Complete Time: : [facility] 03/25 22:52 Order name: PT-INR; Complete Time: : [facility] 03/25 22:52 Order name: Troponin HS; Complete Time: : [facility] 03/25 22:52 Order name: Lipase; Complete Time: : [facility] 03/25 22:52 Order name: Urinalysis w/ reflexes [facility] 03/25 22:52 Order name: XRAY Chest (1 view) [facility] 03/25 22:52 Order name: CT Traumagram (Head C Spine CAP W Con) [facility] 03/26 02:53 Order name: Extremity Nonvascular Complete EDTN 03/25 22:52 Order name: EKG; Complete Time: 22:53 [facility] 03/25 22:52 Order name: Cardiac monitoring; Complete Time: 00:05 [facility] 03/25 22:52 Order name: EKG - Nurse/Tech; Complete Time: 00:06 [facility] 03/25 22:52 Order name: IV Saline Lock; Complete Time: 00:06 [facility] 03/25 22:52 Order name: Labs collected and sent; Complete Time: 00:06 [facility] 03/25 22:52 Order name: O2 Per Protocol; Complete Time: 00:06 [facility] 03/25 22:52 Order name: O2 Sat Monitoring; Complete Time: 00:06 elsa EC:37 Rate is 89 beats/min. Rhythm is regular. QRS Orma is Normal. AK interval is normal. QRS elsa interval is normal. QT interval is normal. No Q waves. T waves are Normal. No ST changes noted. Clinical impression: NSR w/ Non-specific ST/T Changes and No evidence of ischemia. Interpreted by me. Reviewed by me. Administered Medications: 00:12 Drug: NS 0.9% IV 1000 ml IV at 125 ml/hr continuous Route: IV; Rate: 125 ml/hr; Site: cg right antecubital; 05:40 Follow up: Response: No adverse reaction; IV Status: Completed infusion pf1 04:00 Drug: Ketorolac IVP 15 mg IVP once Route: IVP; Site: right antecubital; pf1 05:00 Follow up: Response: No adverse reaction; Marked relief of symptoms; Pain is decreased pf1 04:00 Drug: Decadron - Dexamethasone IVP 10 mg IVP once Route: IVP; Site: right antecubital; pf1 05:00 Follow up: Response: No adverse reaction pf1 04:00 Drug: fentaNYL (PF) IVP 25 mcg IVP once Route: IVP; Site: right antecubital; pf1 05:00 Follow up: Response: No adverse reaction; Marked relief of symptoms; Pain is decreased; pf1 RASS: Alert and Calm (0) 04:00 Drug: Ondansetron IVP 4 mg IVP once; over 2 minutes Route: IVP; Site: right antecubital;pf1 05:00 Follow up: Response: No adverse reaction pf1 05:10 Drug: Amoxicillin-Clavulanate PO 875 mg PO once Route: PO; cg 05:40 Follow up: Response: No adverse reaction pf1 05:10 Drug: Rocephin IV 1 grams IV at per protocol once; Given slow IV push per pharmacy cg instructions Route: IV; Rate: per protocol; Site: right antecubital; 05:40 Follow up: Response: No adverse reaction; IV Status: Completed infusion pf1 05:15 Drug: AZITHromycin PO 500 mg PO once Route: PO; cg 05:42 Follow up: Response: No adverse reaction pf1 Disposition Summary: 03/26/23 04:34 Discharge Ordered Notes: Location: Home elsa Problem: new elsa Symptoms: have improved elsa Condition: Stable elsa Diagnosis - Strain of muscle, fascia and tendon at neck level, initial encounter elsa - Unspecified symptoms and signs involving the musculoskeletal system elsa - Other specified diseases of upper respiratory tract elsa Followup: elsa - With: Private Physician - When: 2 - 3 days - Reason: Recheck today's complaints, Continuance of care, Re-evaluation by your physician Followup: elsa - With: Naif Andersen MD - When: 2 - 3 days - Reason: Recheck today's complaints, Re-evaluation by your physician Followup: elsa - With: Aviva Westfall MD - When: 2 - 3 days - Reason: Recheck today's complaints, Re-evaluation by your physician Discharge Instructions: - Discharge Summary Sheet elsa - Muscle Strain elsa - Upper Respiratory Infection, Adult elsa - Neck Contusion elsa - Muscle Strain, [id number] elsa - Aspirin and Your Heart elsa - Neck Contusion, [id number] [facility] Forms: - Medication Reconciliation Form [facility] - Thank You Letter [facility] - Antibiotic Education elsa - Prescription Opioid Use elsa - Patient Portal Instructions [facility] - Leadership Thank You Letter [facility] Prescriptions: - acetaminophen-codeine 300-30 mg Oral tablet - take 1 tablet ORAL route every 6 hours as needed for pain; 20 tablet; Refills: elsa 0, Product Selection Permitted - diclofenac sodium 25 mg Oral tablet, delayed release (enteric coated) - take 1 tablet ORAL route 2 times per day; 20 tablet; Refills: 0, Product elsa Selection Permitted - Augmentin 875-125 mg Oral Tablet - take 1 tablet ORAL route every 12 hours for 10 days; 20 tablet; Refills: 0, [facility] Product Selection Permitted - Medrol (Jaime) 4 mg Oral Tablets, Dose Pack - take 1 tablet ORAL route as directed - follow package instructions; 1 packet; elsa Refills: 0, Product Selection Permitted - Zithromax 500 mg Oral tablet - take 1 tablet ORAL route once daily for 4 days; 4 tablet; Refills: 0, Product [facility] Selection Permitted Signatures: Dispatcher [employer] Paul Rowe MD MD cha Garcia, Cindy RN Teresa Rush RN RN pf1 Miranda Mahmood RN RN km8 Corrections: (The following items were deleted from the chart) 02:52 01:57 Carotid Artery Bilateral+US.RAD.BRZ ordered. EDMS EDMS
[2023-03-26] MEDS ORDERED: CEFTRIAXONE 1000 MG/VIAL ONE (05:15)
[2023-03-26] MEDS ORDERED: AZITHROMYCIN 250 MG TAB ONE (05:16)
[2023-03-26] MEDS ORDERED: AMOX/K CLAV 875 MG TAB ONE (05:16)
[2023-03-26 06:59] VITALS: BP 176/98; TEMP 98.3; O2SAT 97
--- NOTE | 2023-03-26 21:17 | RAD REPORT ---
EXAM DESCRIPTION: CT - Head C Spine Eugene Ron - 03/26/2023 7:35 am CLINICAL HISTORY: The patient is 82 years old and is Female; headache, left sided body pain Bed Name: 12 TECHNIQUE: Axial computed tomography images of the head and cervical spine without intravenous contr ast. Axial computed tomography images of the chest, abdomen and pelvis with intravenous contrast. Sagittal and coronal reformatted images were created and reviewed. This CT exam was performed usin one or more of the following dose reduction techniques: automated exposure control, adjustment of the mA and/or kV according to patient size, and/or use of iterative reconstruction technique. COMPARISON: 09/10/2022 CT head without contrast FINDINGS: NECK: BRAIN: "Empty sella" appearance of the sella turcica with thinning of the pituitary parenchyma, unc hanged from reference. Nonspecific, but in the appropriate clinical setting, this could reflect intra cranial hypertension (such as idiopathic intracranial hypertension). Clinical correlation recommended . No extra-axial fluid collection. No intracranial hemorrhage. No transtentorial herniation. No focal valencia-white matter differentiation abnormality. MIDLINE SHIFT: No midline shift. RETROPHARYNGEAL SPACE: Unremarkable THYROID: Unremarkable No enlarged or calcified nodules. CHEST: LUNGS: Mild lingular tree-in-bud opacities, favoring endobronchial infection. PLEURAL SPACE: Unremarkable No significant effusion. No pneumothorax. HEART: No cardiomegaly. No significant pericardial effusion. No significant coronary artery dimitri cifications. MEDIASTINUM: No pneumomediastinum or mediastinal fluid collection. ABDOMEN: LIVER: Unremarkable No mass. GALLBLADDER AND BILE DUCTS: Presumed cholecystectomy, with no surgical clips identified, but no nor mal gallbladder seen within the gallbladder fossa. No greater than expected ductal dilatation. PANCREAS: Unremarkable No ductal dilation. No mass. SPLEEN: Unremarkable No splenomegaly. ADRENALS: Unremarkable No mass. KIDNEYS AND URETERS: Unremarkable No hydronephrosis. No solid mass. STOMACH AND BOWEL: Colonic diverticulosis without evidence of acute diverticulitis. No obstruction. PELVIS: APPENDIX: No findings to suggest acute appendicitis. BLADDER: Unremarkable No mass. REPRODUCTIVE: Presumed hysterectomy. NECK, CHEST, ABDOMEN and PELVIS: INTRAPERITONEAL SPACE: See above. BONES/JOINTS: Multilevel cervical spondylosis and facet arthrosis. No cervical vertebral body height loss. Dens is intact. No dislocation. Minimal grade 1 anterolisthesis of C6 on C7. Craniocervical orientation is normal. Degenerative changes of the bilateral shoulders . Mild scoliotic curvature of the thoracolumbar spine. Severe degenerative changes of the right greater than left 1st [facility] joints. No fracture of the calvarium or visualized facial bones. No significant spinal canal stenosis. No displaced or depressed rib fractures. No appreciable sternal or thoracic or lumbar vertebr al fractures. SOFT TISSUES: Small left of midline fat-containing periumbilical hernia. VASCULATURE: Mild thoracic and moderate abdominal aortic calcified atherosclerosis without aneurysm al dilatation. No additional focal consolidation. No central pulmonary embolism. LYMPH NODES: Unremarkable No enlarged lymph nodes. IMPRESSION: 1. No acute intracranial or cervical spine abnormality. 2. Mild lingular tree-in-bud opacities, favoring endobronchial infection. 3. No additional acute intrathoracic findings. No acute abdominal or pelvic abnormality. 4. Presumed cholecystectomy. 5. Colonic diverticulosis without evidence of acute diverticulitis. Electronically signed by: Piter Rush MD 03/26/2023 04:35 AM RETURNING OFFICER Due to temporary technical issues with the PACS/Fluency reporting system, reports are being signed by the in house radiologists without review as a courtesy to insure prompt reporting. The interpreting radiologist is fully responsible for the content of the report.
--- NOTE | 2023-03-26 21:19 | RAD REPORT ---
EXAM DESCRIPTION: US - Extremity Nonvascular Complete - 03/26/2023 10:13 am CLINICAL HISTORY: The patient is 82 years old and is Female; PAIN Bed Name: 12 TECHNIQUE: Real-time ultrasound scan of the soft tissues of the left neck with image documentation. COMPARISON: No relevant prior studies available. FINDINGS/ IMPRESSION: SOFT TISSUES: Unremarkable No abscess. No foreign body. No abnormal mass . No acute abnormality within the soft tissues of the left neck. VASCULATURE: Unremarkable Peak systolic velocity in the left common carotid artery (CCA) is 69 cm/s. Of note, if there is acute left neck pain, but no appreciable acute osseous or soft tissue findings o n concurrent CT, consider further evaluation by CTA neck to exclude possible vertebral dissection, pa rticularly if there is a history of trauma or associated neurological symptoms.. Electronically signed by: Piter Rush MD 03/26/2023 04:41 AM SECURITY AND COMPLIANCE ANALYST Due to temporary technical issues with the PACS/Fluency reporting system, reports are being signed by the in house radiologists without review as a courtesy to insure prompt reporting. The interpreting radiologist is fully responsible for the content of the report.
--- NOTE | 2023-03-26 21:27 | RAD REPORT ---
EXAM DESCRIPTION: RAD - Chest Single View - 03/25/2023 11:21 pm CLINICAL HISTORY: The patient is 82 years old and is Female; CHEST PAIN TECHNIQUE: Frontal view of the chest. COMPARISON: No relevant prior studies available. FINDINGS: Lungs: Unremarkable. No consolidation. Pleural space: Unremarkable. No pneumothorax. Heart: Unremarkable. Mediastinum: Unremarkable. Normal mediastinal contour. Bones/joints: No acute findings. IMPRESSION: No acute findings in the chest. Electronically signed by: Tevin Morton MD 03/26/2023 12:51 AM CROCHET MACHINE OPERATOR Due to temporary technical issues with the PACS/Fluency reporting system, reports are being signed by the in house radiologists without review as a courtesy to insure prompt reporting. The interpreting radiologist is fully responsible for the content of the report.
--- NOTE | 2023-04-01 14:02 | EKG ---
Test Date: 2023-03-26 Test Time: 00:48:54 Team Automobile Assembler: ARNIE MEASUREMENT RESULTS: Intervals: Rate: 89 SC: 166 QRSD: 88 QT: 328 QTc: 399 [place]: P: 52 SC: 166 QRS: -48 T: -42 INTERPRETIVE STATEMENTS: Normal sinus rhythm Left anterior fascicular block Nonspecific ST and T wave abnormality Abnormal ECG Compared to ECG 09/10/2022 15:26:18 ST (T wave) deviation now present Sinus tachycardia no longer present Myocardial infarct finding no longer present Electronically Signed On 04-01-23 13:47:16 STARCH AND PROSIZE MIXER by Gallo Herring
== END 2023-03-26 05:42 | disposition home or self-care (01) ==
LOC: ER 22:08
DX: S16.1XXA Strain of muscle, fascia and tendon at neck level, initial encounter (principal); R29.91 Unspecified symptoms and signs involving the musculoskeletal system; J39.8 Other specified diseases of upper respiratory tract; R10.9 Unspecified abdominal pain; E11.9 Type 2 diabetes mellitus without complications; I10 Essential (primary) hypertension; E78.5 Hyperlipidemia, unspecified
CPT/HCPCS: 96365; 96361; 93005; 85025; 80048; 36415; 83735; 85610; 80076; 81003; 84484; 83690; 83880; 70450; 72125; 71260; 74177; 71045; 76881; 96375; 99284; Q9967